=== PATIENT | male | born 1960 | race African-American/Black ===

== ENCOUNTER 2017-01-05 15:41 | Emergency (ER) | payer OTHER ==
[~2017-01-05] VITALS: Ht 185.4 cm; Wt 77.1 kg
[2017-01-05 15:53] VITALS: BP 150/78
--- NOTE | 2017-01-05 16:17 | Emergency Room Report ---
History of Present Illness General Chief Complaint: Pain Source: Patient Present Illness HPI 56 YO Male presents to the ED c/O Left knee pain 10/10 in severity with superficial burning sensation with areas of numbness near to surgical incision sites. pt. s/p knee surgery x 3 months ago after accident. denies increased erythema, fevers, chills, or significant changes in character to his typical symptoms. Patient states that he wears a modified knee immobilizer. Patient states that he takes prescribed pain medications regularly however he is has been out of his prescription. He denies new trauma or fall. Denies numbness tingling or loss of sensation or gross motor movements of the extremities, incontinence of bowel or bladder. Denies CP, Palpitations, LOC, AMS, dizziness, Changes in Vision, or a sudden severe headache. Allergies: Coded Allergies: No Known Allergies (Unverified , 01/05/17) Patient History Past Medical History: see triage record Past Surgical History: none Pertinent Family History: none Immunizations: UTD Reviewed Nursing Documentation: PMH: Agreed, PSxH: Agreed Nursing Documentation-PMH Hx Hypertension: Yes Review of Systems All Other Systems: negative except mentioned in HPI Physical Exam Vital Signs Date Time Temp Pulse Resp B/P Pulse Ox O2 Delivery O2 Flow Rate FiO2 01/05/17 15:53 98.1 99 18 150/78 97 Room Air Sp02 EP Interpretation: reviewed, normal General Appearance: no apparent distress, alert, GCS 15, non-toxic Head: normocephalic, atraumatic Eyes: bilateral eye PERRL, bilateral eye normal inspection ENT: hearing grossly normal, normal pharynx, no angioedema, normal voice Neck: full range of motion, supple/symm/no masses Respiratory: lungs clear, normal breath sounds, speaking full sentences Cardiovascular #1: regular rate, rhythm, no edema Rectal: deferred Musculoskeletal: back normal, gait/station normal, normal range of motion, no calf tenderness, swelling - anterior left knee, , other - two vertical surgical scars noted to the proximal anterior tibia, no appreciable erythema or increased temperature to palpation, pt. has some ROM- limited due to setting on immobilizer. 2+ post. tibialis pulse palpated Neurologic: alert, oriented x3, responsive, motor strength/tone normal, sensory intact, speech normal Psychiatric: judgement/insight normal, memory normal, mood/affect normal Skin: normal color, no rash, warm/dry, well hydrated Medical Decision Making PA Attestation Dr. Salvador is my supervising Physician whom patient management has been discussed with. Diagnostic Impression: Primary Impression: Knee pain, left Qualified Codes: M25.562 - Pain in left knee ER Course 56 YO Male presents to the ED c/O Left knee pain 10/10 in severity with superficial burning sensation with areas of numbness near to surgical incision sites. pt. s/p knee surgery x 3 months ago after accident. denies increased erythema, fevers, chills, or significant changes in character to his typical symptoms. Patient states that he wears a modified knee immobilizer. Patient states that he takes prescribed pain medications regularly however he is has been out of his prescription. He denies new trauma or fall. Denies numbness tingling or loss of sensation or gross motor movements of the extremities, incontinence of bowel or bladder. Denies CP, Palpitations, LOC, AMS, dizziness, Changes in Vision, or a sudden severe headache. Ddx considered but are not limited to Fracture, dislocation, contusion, Sprain/ Strain/Spasm septic joint, osteomyelitis, hardware dislodgement. Vital signs: are WNL, pt. is afebrile H&PE are most consistent with musculoskeletal injury will perform imaging to r/ o fractures/dislocations. no evidence of infection at this time. suspect post surgical paresthesias. ORDERS: - X-ray Left knee 3 views - negative for fx, Dislocation, or significant soft tissue injury, hardware intact- per preliminary read in ED by Dr. Salvador - interpretation is scribed by PA. ED INTERVENTIONS: none required at this time. - d/w pt. that he will be started in gabapentin, taper explained to him. d/w pt. to follow up with pcp, and provided list of free/reduced cost health clinics in the even he does not have pcp here. d/w pt. to return to ED promptly with worsening or new symptoms. DISCHARGE: At this time pt. is stable for d/c to home. Will provide printed patient care instructions, and any necessary prescriptions. Care plan and follow up instructions have been discussed with the patient prior to discharge. Last Vital Signs Date Time Temp Pulse Resp B/P Pulse Ox O2 Delivery O2 Flow Rate FiO2 01/05/17 15:53 98.0 99 18 150/78 97 Room Air Disposition: HOME, SELF-CARE Condition: Stable Scripts Gabapentin* (GABAPENTIN*) 100 Mg Capsule 200 MG ORAL THREE TIMES A DAY, #30 CAP Prov: Janett Prabhakar 01/05/17 Capsaicin (CAPSAICIN) 42.5 Gm Cream..g. 1 GM TP TID, #42.5 GM Prov: Janett Prabhakar 01/05/17 Patient Instructions: Knee Pain Additional Instructions: Take medications as directed. Follow up with a Primary Care Provider in 3-5 days, even if your symptoms have resolved. --Please review list of primary care clinics, if you do not already have a primary care provider Return sooner to ED if new symptoms occur, or current symptoms become worse. Do not drink alcohol, drive, or operate heavy machinery while taking [ ] as this may cause drowsiness. - Please note that this Emergency Department Report was dictated using [employer] customer service specialist technology software, occasionally this can lead to erroneous entry secondary to interpretation by the dictation equipment. Janett Prabhakar Jan 05, 2017 16:17
--- NOTE | 2017-01-05 16:52 | Diagnostic Imaging Report ---
Indications: Left knee pain Technique: 3 views left knee. Findings: Comparison: None Fixation hardware bridges an old healed fracture of the proximal aspect of the tibia. Additional screw tracts are demonstrated in the distal femur, mid tibia. Osseous densities reside at the margins of the knee joint. Prominent arterial mural calcification. No fracture, dislocation, joint space widening or effusion, lytic destruction, periosteal reaction , surrounding soft tissue swelling/foreign body/gas, or other acute changes are identified. IMPRESSION: No evidence of acute abnormality of the left knee Prior ORIF left tibial fracture Periarticular calcific/ossific densities may represent fracture fragments or heterotopic ossification Arteriosclerosis.
[2017-01-05] MEDS ORDERED: GABAPENTIN100 MG ORAL (17:08)
[2017-01-05] MEDS ORDERED: CAPSAICIN42.5 GM TP (17:08)
[2017-01-05 17:25] VITALS: BP 123/79
== END 2017-01-05 17:25 | disposition home or self-care (01) ==
LOC: EMR 16:25
DX: M25.562 Pain in left knee (principal); I10 Essential (primary) hypertension; Z98.890 Other specified postprocedural states; I70.8 Atherosclerosis of other arteries
CPT/HCPCS: 99283

== ENCOUNTER 2017-05-09 16:26 | Emergency (ER) | payer MEDICAID, OTHER ==
[~2017-05-09] VITALS: Ht 185.4 cm; Wt 77.1 kg
[~2017-05-09 16:26] MED LIST: CAPSAICIN42.5 GM TP; GABAPENTIN100 MG ORAL
[2017-05-09 16:55] VITALS: BP 137/83
[2017-05-09] MEDS ORDERED: LISINOPRIL5 MG ORAL (18:16)
[2017-05-09] MEDS ORDERED: NORCO 5-325 TA1 EAC1 ORAL (18:16)
[2017-05-09] MEDS ORDERED: IBUPROFEN600 MG ORAL (18:16)
[2017-05-09 18:27] VITALS: BP 152/90
--- NOTE | 2017-05-09 21:20 | Emergency Room Report ---
History of Present Illness General Chief Complaint: General Complaint Source: Patient Present Illness HPI The patient is a 56-year-old male presenting for left knee pain. He states that he had surgery on the left knee 7 months prior after fracture. He denies any complications. Pain has been gradually increasing over the past few months. He denies any injury to the area. Pain is now 8/10 dull ache and does not radiate. Worse with movement. He denies any other symptoms including N, V , F, chills, rash Allergies: Coded Allergies: No Known Allergies (Unverified , 01/05/17) Patient History Past Medical History: see triage record Past Surgical History: other - L knee 7 months prior Pertinent Family History: none Reviewed Nursing Documentation: PMH: Agreed, PSxH: Agreed Nursing Documentation-PMH Hx Hypertension: Yes Review of Systems All Other Systems: negative except mentioned in HPI Physical Exam Vital Signs Date Time Temp Pulse Resp B/P (MAP) Pulse Ox O2 Delivery O2 Flow Rate FiO2 05/09/17 16:45 98.1 100 16 137/83 98 Room Air Sp02 EP Interpretation: reviewed, normal General Appearance: no apparent distress, alert, GCS 15, non-toxic Head: normocephalic, atraumatic Eyes: bilateral eye normal inspection, bilateral eye PERRL Musculoskeletal: back normal, gait/station normal, normal range of motion, no calf tenderness, swelling - L knee. No fluctuance, tender - TTP over the L anterior knee. Neurologic: alert, oriented x3, responsive, motor strength/tone normal, sensory intact, speech normal Psychiatric: judgement/insight normal, memory normal, mood/affect normal, no suicidal/homicidal ideation Skin: normal color, no rash, warm/dry, well hydrated Medical Decision Making PA Attestation Dr. Ellis is my supervising physician. Patient management was discussed with my supervising physician Diagnostic Impression: Primary Impression: Knee pain, left Qualified Codes: M25.562 - Pain in left knee ER Course The patient is a 56-year-old male presenting for left knee pain. Ddx considered include but not limited to sprain/strain, fracture, contusion, osteomyelitis, gout, hardware failure, among others PE: Afebrile. NAD L knee: TTP over the anterior aspect. FulL AROM intact. No skin changes. Skin is warm and dry. No calf tenderness or edema. L knee xray shows hardware is intact. No acute findings. The patient is discharged home with a prescription for pain medication. he also states she ran out of his lisinopril. He was given a refill and will followup with his primary doctor. ER precautions are given Other X-Ray Diagnostic Results Other X-Ray Diagnostic Results : X-Ray ordered: L knee # of Views/Limited Vs Complete: 3 View Indication: Pain EP Interpretation: Yes PA Xray: Interpretation reviewed, by supervising MD, and agrees with findings. Interpretation: no dislocation, no soft tissue swelling, no fractures Impression: No acute disease Electronically Signed by: Declan Anguiano PA-C Last Vital Signs Date Time Temp Pulse Resp B/P (MAP) Pulse Ox O2 Delivery O2 Flow Rate FiO2 05/09/17 18:27 96 14 152/90 100 Room Air 05/09/17 16:55 98.1 Status: improved Disposition: HOME, SELF-CARE Condition: Improved Scripts Hydrocodone Bit/Acetaminophen 5-325* (NORCO 5-325 TABLET*) 1 Each Tablet 1 TAB ORAL Q6HR Y for For Pain, #10 TAB Prov: DECLAN ANGUIANO P.A. 05/09/17 Ibuprofen* (MOTRIN*) 600 Mg Tablet 600 MG ORAL Q8H Y for For Pain, #30 TAB 0 Refills Prov: DECLAN ANGUIANO P.A. 05/09/17 Lisinopril (LISINOPRIL*) 5 Mg Tablet 5 MG ORAL DAILY, #30 TAB Prov: DECLAN ANGUIANO P.A. 05/09/17 Referrals: NOT CHOSEN [facility]/,REFERRING (PCP) Patient Instructions: Knee Pain Additional Instructions: I discussed my findings with the patient. All questions and concerns have been answered. Treatment and medication compliance have been addressed. Please follow up with the orthopedic surgeon.Return to ED if pain remains or worsens, numbness or tingling occurs, new rash is noticed, fever is noticed, or if needed for any reason. Patient verbalized understanding of discharge instructions. DECLAN ANGUIANO May 09, 2017 21:20
--- NOTE | 2017-05-10 12:07 | Diagnostic Imaging Report ---
Indication: PAIN Technique: 3 views of the left knee Comparison: None Findings:. Extensive surgical hardware seen reducing old healed proximal tibial fracture. Areas of heterotopic ossification are seen lateral, medial, and posterior to the knee joint, presumably related to this. No acute fractures. No dislocations. Old screw tracks are seen in the distal femur and tibia. No suprapatellar effusion. The joint spaces are preserved. No radiopaque foreign body other than the surgical hardware Impression:Posttraumatic and postsurgical changes, as described No acute bony trauma This agrees with the preliminary interpretation provided overnight by Dr. Chan
== END 2017-05-09 18:30 | disposition home or self-care (01) ==
LOC: EMR 17:08
DX: M25.562 Pain in left knee (principal); I10 Essential (primary) hypertension; Z98.890 Other specified postprocedural states
CPT/HCPCS: 99284

== ENCOUNTER 2017-06-17 10:43 | Emergency (ER) | payer MEDICAID ==
[~2017-06-17] VITALS: Ht 185.4 cm; Wt 77.1 kg
[~2017-06-17 10:43] MED LIST changes: +IBUPROFEN600 MG ORAL; +LISINOPRIL5 MG ORAL; +NORCO 5-325 TA1 EAC1 ORAL
[2017-06-17] MEDS ORDERED: ROBAXIN-750750 MG PO (11:43)
[2017-06-17 11:50] VITALS: BP 142/88
--- NOTE | 2017-06-17 13:11 | Emergency Room Report ---
History of Present Illness General Chief Complaint: Pain Source: Patient Present Illness HPI 49-year-old male with left upper back pain Duration 1-2 weeks Worsen morning, patient thinks is because he is "sleeping awkwardly." he also just got of mcc Denies chest pain, shortness of breath, fever or chills Patient taking ibuprofen at home Deniesl lower extremity weakness Denies incontinence denies trauma Allergies: Coded Allergies: No Known Allergies (Unverified , 01/05/17) Patient History Past Medical History: none Past Surgical History: none Pertinent Family History: none Social History: Denies: smoking, alcohol use, drug use Immunizations: UTD Reviewed Nursing Documentation: PMH: Agreed, PSxH: Agreed Nursing Documentation-PMH Hx Hypertension: Yes Review of Systems All Other Systems: negative except mentioned in HPI Physical Exam Vital Signs Date Time Temp Pulse Resp B/P (MAP) Pulse Ox O2 Delivery O2 Flow Rate FiO2 06/17/17 11:01 97.9 98 17 142/83 98 Room Air Sp02 EP Interpretation: reviewed, normal General Appearance: normal inspection, well appearing, no apparent distress, alert, GCS 15, non-toxic Head: normocephalic, atraumatic Eyes: bilateral eye PERRL, bilateral eye EOMI ENT: normal ENT inspection, hearing grossly normal, normal pharynx, no angioedema, normal voice, TMs + canals normal, uvula midline, moist mucus membranes Neck: normal inspection, full range of motion, supple, thyroid normal, no meningismus, no bony tend Respiratory: normal inspection, lungs clear, normal breath sounds, no rhonchi, no respiratory distress, no retraction, no accessory muscle use, no wheezing, speaking full sentences Cardiovascular #1: regular rate, rhythm, no edema, no JVD, normal capillary refill Gastrointestinal: normal inspection, normal bowel sounds, non tender, soft, no mass, no peritonitis, non-distended, no guarding, no hernia, no pulsatile mass Genitourinary: no CVA tenderness Musculoskeletal: normal inspection, back normal, normal range of motion, no calf tenderness, pelvis stable, Mendoza's Sign negative, other - Mild ttp mid/ upper left back, palpable cord/spasm Neurologic: normal inspection, alert, oriented x3, responsive, utilization management um nurse III-XII nml as tested, motor strength/tone normal, cerebellar normal, normal gait, speech normal Psychiatric: normal inspection, judgement/insight normal, mood/affect normal, no suicidal/homicidal ideation, no delusions Skin: normal inspection, normal color, no rash Lymphatic: normal inspection, no adenopathy Medical Decision Making Diagnostic Impression: Primary Impression: Upper back pain on left side ER Course 57YOM with left upper back pain 2 weeks VSS, Afebrile palpable spasm Rx Robaxin to take with motrin Close PMD followup ER course: Patient has remained stable during ED stay. Disposition: Patient is to be discharged to home. Prescriptions given are robaxin Patient is instructed to follow up with their primary care doctor within 5 days. Strict return precautions discussed with patient such as fever, chills, worsening/severe pain, nausea, vomiting, which may indicate severe illness. Patient verbalizes understanding and agrees with plan. Please note that this Emergency Department Report was dictated using [employer] officer technology software, occasionally this can lead to erroneous entry secondary to interpretation by the dictation equipment Last Vital Signs Date Time Temp Pulse Resp B/P (MAP) Pulse Ox O2 Delivery O2 Flow Rate FiO2 06/17/17 11:01 97.9 98 17 142/83 98 Room Air Status: improved Disposition: HOME, SELF-CARE Condition: Improved Scripts Methocarbamol* (ROBAXIN-750*) 750 Mg Tablet 750 MG PO TID for 7 Days, #21 TAB 0 Refills Prov: NANO SANTIZO M.D. 06/17/17 Referrals: NOT CHOSEN [facility]/,REFERRING (PCP) NANO SANTIZO M.D. Jun 17, 2017 13:11
== END 2017-06-17 11:50 | disposition home or self-care (01) ==
LOC: EMR 11:43
DX: M54.9 Dorsalgia, unspecified (principal); I10 Essential (primary) hypertension
CPT/HCPCS: 99283

== ENCOUNTER 2017-07-12 12:11 | Emergency (ER) | payer MEDICAID ==
[~2017-07-12] VITALS: Ht 185.4 cm; Wt 77.1 kg
[~2017-07-12 12:11] MED LIST changes: +ROBAXIN-750750 MG PO
[2017-07-12 12:35] VITALS: BP 155/91
--- NOTE | 2017-07-12 13:27 | Emergency Room Report ---
History of Present Illness General Chief Complaint: General Complaint Source: Patient Present Illness HPI 57-year-old male presents to the emergency department complaining of erythema, increased lacrimation and sticky discharge in the left thigh times one day. Patient reports nonproductive cough with increase in phlegm and nasal congestion x3 days. Patient reports subjective low grade fevers he denies chills. he denies eye pain or pain with movement of the eye or scratching sensation. He does report 10 out of 10 in severity pain throughout his rib cage only when coughing. Denies Loss of vision, Floaters, Flashing lights, Diplopia/blurry vision. Allergies: Coded Allergies: No Known Allergies (Unverified , 01/05/17) Nursing Documentation-PMH Hx Hypertension: Yes Review of Systems All Other Systems: negative except mentioned in HPI Physical Exam Vital Signs Date Time Temp Pulse Resp B/P (MAP) Pulse Ox O2 Delivery O2 Flow Rate FiO2 07/12/17 12:16 98.1 111 20 152/93 95 Room Air Sp02 EP Interpretation: reviewed, normal General Appearance: no apparent distress, alert, GCS 15, non-toxic Head: normocephalic, atraumatic Eyes: left eye other - erythema , yellow d/c and wet appearance to lashes of left eye, no periorbital swelling. , bilateral eye PERRL, bilateral eye EOMI ENT: hearing grossly normal, normal pharynx, normal voice, TMs + canals normal , uvula midline, moist mucus membranes, nasal congestion, pharyngeal erythema Neck: full range of motion Respiratory: chest non-tender, lungs clear, normal breath sounds, speaking full sentences Cardiovascular #1: regular rate, rhythm Genitourinary: normal inspection Musculoskeletal: back normal, gait/station normal, normal range of motion, non- tender Neurologic: alert, oriented x3, responsive, motor strength/tone normal, sensory intact, speech normal, grossly normal Psychiatric: judgement/insight normal Skin: normal color, no rash, warm/dry, well hydrated Lymphatic: no adenopathy Medical Decision Making PA Attestation Dr. Hernandez is my supervising Physician whom patient management has been discussed with. Diagnostic Impression: Primary Impression: Upper respiratory infection Qualified Codes: J06.9 - Acute upper respiratory infection, unspecified Additional Impressions: Bacterial conjunctivitis of left eye Nasal congestion ER Course 57-year-old male presents to the emergency department complaining of erythema, increased lacrimation and sticky discharge in the left thigh times one day. Patient reports nonproductive cough with increase in phlegm and nasal congestion x3 days. Patient reports subjective low grade fevers he denies chills. he denies eye pain or pain with movement of the eye or scratching sensation. He does report 10 out of 10 in severity pain throughout his rib cage only when coughing. Denies Loss of vision, Floaters, Flashing lights, Diplopia/blurry vision. Ddx considered but are not limited to URI, pneumonia, PE, strep pharyngitis, meningitis. Vital signs: Pt. is afebrile, the remaining VS are WNL H&PE are most consistent with Bacterial conjunctivitis and URI ORDERS: none required at this time, the diagnosis is clinical ED INTERVENTIONS: None required at this time. DISCHARGE: At this time pt. is stable for d/c to home. Will provide printed patient care instructions, and any necessary prescriptions. Care plan and follow up instructions have been discussed with the patient prior to discharge. p Last Vital Signs Date Time Temp Pulse Resp B/P (MAP) Pulse Ox O2 Delivery O2 Flow Rate FiO2 07/12/17 12:35 83 20 155/91 97 Room Air 07/12/17 12:16 98.1 Disposition: HOME, SELF-CARE Condition: Stable Scripts Acetaminophen* (TYLENOL EXTRA STRENGTH*) 500 Mg Tablet 500 MG ORAL Q6H Y for Mild Pain/Temp > 100.5, #20 TAB 0 Refills Prov: Janett Prabhakar P.A. 07/12/17 Ofloxacin (OCUFLOX) 5 Ml Drops 2 DROP OP TID, #5 ML Prov: Janett Prabhakar P.A. 07/12/17 Guaifenesin (Guaifenesin) 1,200 Mg Tab.er.12h 1200 MG PO BID, #20 TAB Prov: Janett Prabhakar P.A. 07/12/17 Loratadine/Pseudoephedrine (CLARITIN-D 12 HOUR TABLET) 1 Each Tab.er.12h 1 TAB ORAL EVERY 12 HOURS, #20 TAB Prov: Janett Prabhakar P.A. 07/12/17 Codeine/Promethazine Hcl* (PROMETHAZINE-CODEINE SYRUP*) 118 Ml Syrup 5 ML ORAL Q6H Y for For Cough, #118 ML 0 Refills Prov: Janett Prabhakar 07/12/17 Referrals: NOT CHOSEN [facility]/MD,REFERRING (PCP) Patient Instructions: Upper Respiratory Infection, Adult, [id number] Additional Instructions: Take medications as directed. Follow up with a Primary Care Provider in 3-5 days, even if your symptoms have resolved. --Please review list of primary care clinics, if you do not already have a primary care provider Return sooner to ED if new symptoms occur, or current symptoms become worse. Do not drink alcohol, drive, or operate heavy machinery while taking Cough Syrup as this may cause drowsiness. - Please note that this Emergency Department Report was dictated using [employer] stone installer technology software, occasionally this can lead to erroneous entry secondary to interpretation by the dictation equipment. Janett Prabhakar Jul 12, 2017 13:27
[2017-07-12] MEDS ORDERED: OCUFLOX5 ML OP (13:29)
[2017-07-12] MEDS ORDERED: PROMETHAZINE-C118 M1 ORAL (13:29)
[2017-07-12] MEDS ORDERED: GUAIFENESIN1200 MG PO (13:29)
[2017-07-12] MEDS ORDERED: TYLENOL EXTRA500 MG ORAL (13:29)
[2017-07-12] MEDS ORDERED: CLARITIN-D 121 EAC1 ORAL (13:29)
[2017-07-12 13:40] VITALS: BP 138/87
== END 2017-07-12 13:40 | disposition home or self-care (01) ==
LOC: EMR 13:00
DX: J06.9 Acute upper respiratory infection, unspecified (principal); H10.9 Unspecified conjunctivitis; B96.89 Other specified bacterial agents as the cause of diseases classified elsewhere; R09.81 Nasal congestion; I10 Essential (primary) hypertension
CPT/HCPCS: 99284

== ENCOUNTER 2017-09-25 12:50 | Emergency (ER) | payer MEDICAID ==
[~2017-09-25] VITALS: Ht 185.4 cm; Wt 77.1 kg
[~2017-09-25 12:50] MED LIST changes: +CLARITIN-D 121 EAC1 ORAL; +GUAIFENESIN1200 MG PO; +OCUFLOX5 ML OP; +PROMETHAZINE-C118 M1 ORAL; +TYLENOL EXTRA500 MG ORAL
[2017-09-25 12:58] VITALS: BP 150/79
--- NOTE | 2017-09-25 13:57 | Emergency Room Report ---
History of Present Illness General Chief Complaint: Flu Like Symptoms Source: Patient, Medical Record Present Illness HPI 57-year-old male presents to the emergency department complaining of cough, increased sputum production, nasal congestion, runny nose 5 days. Patient reports some chills denies fevers. Reports 5/10 in severity progressive pressure RAMIREZ and generalized body-aches. Patient also is requesting medication refill for his lisinopril as well as gabapentin. Patient reports that he has been out of his medication for a few days. Denies ear pain, high fevers, lethargy, neck pain/stiffness, irritability, photophobia dehydration, N/V/D. Denies Cp, Palpitations, LOC, AMS, seizures, paresthesias, unilateral weakness or changes in Hearing or vision, no Sudden severe RAMIREZ. Allergies: Coded Allergies: No Known Allergies (Unverified , 01/05/17) Patient History Past Medical History: see triage record, psych hx - PTSD- Social History: Reports: smoking - cigarrettes Reviewed Nursing Documentation: PMH: Agreed; PSxH: Agreed Nursing Documentation-PMH Past Medical History: No History, Except For Hx Hypertension: Yes Review of Systems All Other Systems: negative except mentioned in HPI Physical Exam Vital Signs Date Time Temp Pulse Resp B/P (MAP) Pulse Ox O2 Delivery O2 Flow Rate FiO2 09/25/17 12:58 99 18 Room Air 09/25/17 12:58 98.6 150/79 95 98.6 Sp02 EP Interpretation: reviewed, normal General Appearance: no apparent distress, alert, GCS 15, non-toxic Head: normocephalic, atraumatic Eyes: bilateral eye normal inspection, bilateral eye PERRL ENT: hearing grossly normal, normal voice, TMs + canals normal, uvula midline, moist mucus membranes, nasal congestion, pharyngeal erythema Neck: full range of motion Respiratory: chest non-tender, lungs clear, normal breath sounds, no respiratory distress, no accessory muscle use, speaking full sentences, wheezing - scant wheezing on exhalation Cardiovascular #1: regular rate, rhythm, no edema Musculoskeletal: back normal, gait/station normal, normal range of motion, non- tender Neurologic: alert, oriented x3, responsive, motor strength/tone normal, sensory intact, speech normal, grossly normal Psychiatric: judgement/insight normal Skin: normal color, no rash, warm/dry, well hydrated Lymphatic: no adenopathy Medical Decision Making PA Attestation Dr. Hernandez is my supervising Physician whom patient management has been discussed with. Diagnostic Impression: Primary Impression: Bronchitis ER Course 57-year-old male presents to the emergency department complaining of cough, increased sputum production, nasal congestion, runny nose 5 days. Patient reports some chills denies fevers. Reports 5/10 in severity progressive pressure RAMIREZ and generalized body-aches. Patient also is requesting medication refill for his lisinopril as well as gabapentin. Patient reports that he has been out of his medication for a few days. Denies ear pain, high fevers, lethargy, neck pain/stiffness, irritability, photophobia dehydration, N/V/D. Denies Cp, Palpitations, LOC, AMS, seizures, paresthesias, unilateral weakness or changes in Hearing or vision, no Sudden severe RAMIREZ. Ddx considered but are not limited to URI, pneumonia, PE, strep pharyngitis, meningitis. Vital signs: Pt.is afebrile VS are WNL BP is elevated but not an emergent measurement. H&PE are most consistent with bronchitis, and medication refill request. ORDERS: none required at this time, the diagnosis is clinical ED INTERVENTIONS: None required at this time. DISCHARGE: At this time pt. is stable for d/c to home. Will provide printed patient care instructions, and any necessary prescriptions. Care plan and follow up instructions have been discussed with the patient prior to discharge. Last Vital Signs Date Time Temp Pulse Resp B/P (MAP) Pulse Ox O2 Delivery O2 Flow Rate FiO2 09/25/17 12:58 98.6 99 18 150/79 95 Room Air 98.6 Disposition: HOME, SELF-CARE Condition: Stable Scripts Guaifenesin (Guaifenesin) 1,200 Mg Tab.er.12h 1200 MG PO BID, #20 TAB Prov: Janett Prabhakar P.A. 09/25/17 Lisinopril (LISINOPRIL*) 5 Mg Tablet 5 MG ORAL DAILY, #20 TAB Prov: Janett Prabhakar P.A. 09/25/17 Codeine/Promethazine Hcl* (PROMETHAZINE-CODEINE SYRUP*) 118 Ml Syrup 5 ML ORAL Q6H PRN for For Cough, #120 ML 0 Refills Prov: Janett Prabhakar 09/25/17 Albuterol Sulfate* (ALBUTEROL SULFATE MDI*) 8.5 Gm Hfa.aer.ad 2 PUFF INH Q4H, #1 INH 0 Refills Prov: Janett Prabhakar 09/25/17 Gabapentin* (GABAPENTIN*) 100 Mg Capsule 100 MG ORAL THREE TIMES A DAY, #12 CAP Prov: Janett Prabhakar 09/25/17 Patient Instructions: Acute Bronchitis, [id number] Additional Instructions: Take medications as directed. Follow up with a Primary Care Provider in 3-5 days, even if your symptoms have resolved. --Please review list of primary care clinics, if you do not already have a primary care provider Return sooner to ED if new symptoms occur, or current symptoms become worse. Do not drink alcohol, drive, or operate heavy machinery while taking Cough Syrup as this may cause drowsiness. - Please note that this Emergency Department Report was dictated using [employer] injury adjuster technology software, occasionally this can lead to erroneous entry secondary to interpretation by the dictation equipment. Janett Prabhakar Sep 25, 2017 13:57
[2017-09-25] MEDS ORDERED: PROMETHAZINE-C118 M1 ORAL (14:03)
[2017-09-25] MEDS ORDERED: LISINOPRIL5 MG ORAL (14:03)
[2017-09-25] MEDS ORDERED: GABAPENTIN100 MG ORAL (14:03)
[2017-09-25] MEDS ORDERED: ALBUTEROL SULF8.5 GM INH (14:03)
[2017-09-25] MEDS ORDERED: GUAIFENESIN1200 MG PO (14:03)
[2017-09-25 14:26] VITALS: BP 148/82
== END 2017-09-25 14:36 | disposition home or self-care (01) ==
LOC: EMR 14:20
DX: J20.9 Acute bronchitis, unspecified (principal); F17.210 Nicotine dependence, cigarettes, uncomplicated; I10 Essential (primary) hypertension
CPT/HCPCS: 99284

== ENCOUNTER 2017-10-19 15:50 | Emergency (ER) | payer MEDICAID ==
[~2017-10-19] VITALS: Ht 188 cm; Wt 77.1 kg
[~2017-10-19 15:50] MED LIST changes: +ALBUTEROL SULF8.5 GM INH
[2017-10-19] MEDS ORDERED: Isovue-300 100ml vial INJ PRN (16:15)
[2017-10-19 16:42] LABS: APPEARANCE,URINE CLEAR; BILIRUBIN, URINE NEGATIVE (NEGATIVE); COLOR,URINE PALE YELLOW; GLUCOSE, URINE (UA) NEGATIVE (NEGATIVE); KETONES,URINE NEGATIVE (NEGATIVE); LEUKOCYTE ESTERASE ,URINE NEGATIVE (NEGATIVE); NITRITE,URINE NEGATIVE (NEGATIVE); PH,URINE 6 (4.5-8.0); PROTEIN,URINE NEGATIVE (NEGATIVE); UROBILINOGEN,URINE NORMAL MG/DL (0.0-1.0)
[2017-10-19] MEDS ORDERED: Sodium Chloride 500ML 500 ML IV ONE (16:45)
[2017-10-19 16:46] LABS: BASOPHILS % (AUTO) 1.4 % (0.0-2.0); EOSINOPHILS % (AUTO) 0.2 % (0.0-3.0); HEMATOCRIT 39.4 % (42.0-52.0); HEMOGLOBIN 13.9 G/DL (14.2-18.0); LYMPHOCYTES % (AUTO) 40.1 % (20.0-45.0); MEAN CORPUSCULAR VOLUME 107 FL (80-99); MONOCYTES % (AUTO) 8.3 % (1.0-10.0); NEUTROPHILS % (AUTO) 49.9 % (45.0-75.0); PLATELET COUNT 156 K/UL (150-450); RED BLOOD COUNT 3.69 M/UL (4.70-6.10); RED CELL DISTRIBUTION WIDTH 11.5 % (11.6-14.8); WHITE BLOOD COUNT 3.9 K/UL (4.8-10.8)
[2017-10-19 17:04] LABS: ANION GAP 19 mmol/L (5-15); BLOOD UREA NITROGEN 9 mg/dL (7-18); CALCIUM 9.6 MG/DL (8.5-10.1); CARBON DIOXIDE 21 MMOL/L (21-32); CHLORIDE 101 MMOL/L (98-107); CREATININE 0.9 MG/DL (0.55-1.30); POTASSIUM 3.6 MMOL/L (3.5-5.1); SODIUM 141 MMOL/L (136-145)
[2017-10-19 17:08] LABS: ALANINE AMINOTRANSFERASE 52 U/L (12-78); ALBUMIN 4.2 G/DL (3.4-5.0); ALBUMIN/GLOBULIN RATIO 0.9 (1.0-2.7); ALKALINE PHOSPHATASE 101 U/L (46-116); ASPARTATE AMINO TRANSFERASE 64 U/L (15-37); BILIRUBIN,TOTAL 0.6 MG/DL (0.2-1.0)
[2017-10-19 18:42] VITALS: BP 134/81
[2017-10-19] MEDS ORDERED: LISINOPRIL5 MG ORAL (18:54)
[2017-10-19 19:00] VITALS: BP 121/66
--- NOTE | 2017-10-19 22:14 | Emergency Room Report ---
History of Present Illness General Chief Complaint: Generalized Weakness Present Illness HPI Patient is a 57-year-old male brought in by EMS after increased generalized weakness. Patient reports having increased stools for the past 5 days. He reports having increased generalized weakness. Patient denies any alcohol or NSAID use. He did not have any hematemesis. Allergies: Coded Allergies: No Known Allergies (Unverified , 01/05/17) Patient History Past Medical History: see triage record Reviewed Nursing Documentation: PMH: Agreed; PSxH: Agreed Nursing Documentation-PMH Hx Hypertension: Yes Review of Systems All Other Systems: negative except mentioned in HPI Physical Exam Vital Signs Date Time Temp Pulse Resp B/P (MAP) Pulse Ox O2 Delivery O2 Flow Rate FiO2 10/19/17 15:46 98.5 112 20 148/96 99 Room Air 98.4 Sp02 EP Interpretation: reviewed, normal General Appearance: normal inspection, well appearing, no apparent distress, alert, GCS 15 Head: atraumatic ENT: normal ENT inspection, hearing grossly normal, normal voice Neck: normal inspection, full range of motion, supple, no bony tend Respiratory: normal inspection, lungs clear, normal breath sounds, no respiratory distress, no retraction, no wheezing Cardiovascular #1: regular rate, rhythm, no edema Gastrointestinal: normal inspection, normal bowel sounds, non tender, soft, no guarding, no hernia Genitourinary: no CVA tenderness Musculoskeletal: normal inspection, back normal, normal range of motion Neurologic: normal inspection, alert, oriented x3, responsive, tankage grinder III-XII nml as tested, speech normal Psychiatric: normal inspection, judgement/insight normal, mood/affect normal Skin: normal inspection, normal color, no rash Medical Decision Making Diagnostic Impression: Primary Impression: Generalized weakness ER Course Patient presented for generalized weakness. Differential diagnosis included was not limited to anemia, urinary tract infection, electrolyte abnormality, hypothyroidism, myocardial infarction, myasthenia gravis, dehydration, among others. Because of complexity of patient's case laboratory testing and imaging studies were ordered.Laboratory testing showed adequate hemoglobin with a slightly low white blood count. The patient's rectal exam showed no evidence of blood. Patient was noted to have some chronic weakness. The CT the head read by radiology showed no evidence of acute CVA. A CT the abdomen pelvis read by radiology showed no acute findings.Patient's weakness is likely related to medication overuse. Patient was advised to stop consuming Ativan as well as cough syrup. The patient is advised to follow up with primary care doctor in 1-2 days. Patient is advised to return if any worsening condition or if any changes in status that are concerning. This report is dictated with [employer] mutuel cashier software which may occasionally lead to discrepancies related to use of this software. Last Vital Signs Date Time Temp Pulse Resp B/P (MAP) Pulse Ox O2 Delivery O2 Flow Rate FiO2 10/19/17 19:00 99 18 121/66 100 Room Air 10/19/17 18:42 98.4 98.4 Status: improved Disposition: HOME, SELF-CARE Condition: Stable Scripts Lisinopril (LISINOPRIL*) 5 Mg Tablet 5 MG ORAL DAILY, #30 TAB Prov: Mohit Salvador MD 10/19/17 Patient Instructions: Mohit Ordonez MD October 19, 2017 22:14
--- NOTE | 2017-10-20 09:20 | Diagnostic Imaging Report ---
Indication: Abdominal pain Technique: Continuous helical transaxial imaging of the abdomen and pelvis was obtained from the lung bases to the pubic symphysis during intravenous contrast administration. Coronal 2-D reformats were also obtained. Study obtained in a Siemens sensation [address] Automatic Exposure Control was utilized. Total Dose length Product (DLP): 482.[address] Dose Index Volume (CTDIvol): 9.71 mGy Comparison: None Findings: Lung bases are clear. The liver may be slightly hypodense. The gallbladder is unremarkable. Arterial calcifications are present. There is a small cyst in the left kidney. There is focal fat in the liver near the falciform ligament. The pancreas and adrenal glands are unremarkable. Diverticula noted in the colon. No evidence of diverticulitis. Small diverticulum projecting posteriorly from the urinary bladder noted. No free fluid or free air identified. Normal appendix noted. IMPRESSION: No acute findings. Mild fatty liver. Diverticulosis of the colon. Multiple incidental findings as above. [facility] has communicated the preliminary results to the Emergency Department. Their findings are largely concordant with this report. The CT scanner at [facility] is accredited by the [employer] and the scans are performed using dose optimization techniques as appropriate to a performed exam including Automatic Exposure control.
--- NOTE | 2017-10-20 09:48 | Diagnostic Imaging Report ---
Indication: Headache Technique: Contiguous 5 mm thick transaxial imaging of the head obtained in a Siemens Sensation [address] scanner. Soft tissue and bone windows generated. Automatic Exposure Control was utilized. Total Dose length Product (DLP): [address] Dose Index Volume (CTDIvol): 70.38 mGy Comparison: none Findings: There is mild prominence of the ventricles, basal cisterns, and cerebral sulci consistent with atrophy. Mild, nonspecific, white matter hypoattenuation is noted throughout the brain consistent with chronic small vessel disease. There is no midline shift, edema, acute hemorrhage, mass effect, or abnormal extra-axial fluid collections. Bones and extra osseous soft tissues are unremarkable. Impression: No acute intracranial bleed, mass effect or edema. Mild atrophy of the brain. Nonspecific white matter hypoattenuation probably due to chronic small vessel disease. The CT scanner at [facility] is accredited by the [employer] and the scans are performed using dose optimization techniques as appropriate to a performed exam including Automatic Exposure control.
== END 2017-10-19 19:04 | disposition home or self-care (01) ==
LOC: EDBD 15:50 → EMR 16:13
DX: R53.1 Weakness (principal); I10 Essential (primary) hypertension; R10.9 Unspecified abdominal pain; R51 Headache
CPT/HCPCS: 36415; 70450; 74177; 80053; 81003; 83690; 84484; 85025; 85610; 85730; 86850; 86900; 86901; 93005; 96374; 99284; J7040; Q9967

== ENCOUNTER 2017-12-24 20:17 | Emergency (ER) | payer MEDICAID ==
[~2017-12-24] VITALS: Ht 185.4 cm; Wt 70.8 kg
[2017-12-24 20:47] VITALS: BP 127/72
[2017-12-24] MEDS: Albuterol ud Inhalation HHN SCH ×3 (20:53→21:08)
--- NOTE | 2017-12-24 20:58 | Emergency Room Report ---
History of Present Illness General Chief Complaint: Upper Respiratory Illness Source: Patient Present Illness HPI Patient is a 57-year-old male complaining of shortness of breath for the last several months worse today. Patient states he became short of breath and then he feels he had an anxiety attack. The patient states a history of COPD although never actually diagnosed by a physician. He is a smoker. Allergies: Coded Allergies: No Known Allergies (Unverified , 01/05/17) Patient History Past Medical History: asthma, COPD, psych hx Past Surgical History: none Pertinent Family History: none Social History: Reports: smoking, alcohol use Nursing Documentation-H Hx Hypertension: Yes Hx COPD: Yes Review of Systems Constitutional: Denies: no symptoms, see HPI, chills, sweats, fever, malaise, weakness, other Eye: Denies: no symptoms, see HPI, eye pain, blurred vision, tearing, double vision, nose pain, nose congestion, acuity changes, discharge, other ENT: Denies: no symptoms, see HPI, ear pain, ear discharge, nose pain, nose congestion, throat pain, throat swelling, mouth pain, hearing loss, nasal discharge, other Respiratory: Reports: cough, shortness of breath; Denies: no symptoms, see HPI , orthopnea, stridor, wheezing, ANN, sputum, other Cardiovascular: Denies: no symptoms, see HPI, chest pain, edema, palpitations, syncope, PND, other Gastrointestinal: Denies: no symptoms, see HPI, abdominal pain, constipation, diarrhea, nausea, vomiting, melena, hematemesis, other Musculoskeletal: Denies: no symptoms, see HPI, back pain, gout, joint pain, joint swelling, muscle pain, muscle stiffness, other Skin: Denies: no symptoms, see HPI, rash, change in color, change in hair/nails , dryness, lesions, other Neurological: Denies: no symptoms, see HPI, headache, numbness, paresthesia, seizure, tingling, tremors, focal weakness, syncope, dizziness, other Hematologic/Lymphatic: Denies: no symptoms, see HPI, anemia, blood clots, easy bleeding, easy bruising, swollen glands, diathesis, other Allergic: Denies: no symptoms, see HPI, urticaria, hay fever, other Physical Exam Vital Signs Date Time Temp Pulse Resp B/P (MAP) Pulse Ox O2 Delivery O2 Flow Rate FiO2 7/15/18 20:24 97.3 109 20 127/72 96 Room Air 97.3 12/24/17 20:54 21 Sp02 EP Interpretation: reviewed, normal General Appearance: no apparent distress, alert, GCS 15, non-toxic Head: normocephalic, atraumatic Eyes: bilateral eye normal inspection, bilateral eye PERRL ENT: hearing grossly normal, normal pharynx, no angioedema, normal voice Neck: full range of motion, supple/symm/no masses Respiratory: chest non-tender, lungs clear, normal breath sounds, speaking full sentences Cardiovascular #1: regular rate, rhythm, no edema Cardiovascular #2: 2+ carotid (R), 2+ carotid (L), 2+ radial (R), 2+ radial (L) , 2+ dorsalis pedis (R), 2+ dorsalis pedis (L) Gastrointestinal: normal bowel sounds, non tender, soft, non-distended, no guarding, no rebound Rectal: deferred Genitourinary: normal inspection, no CVA tenderness Musculoskeletal: back normal, gait/station normal, normal range of motion, non- tender, calf tenderness Neurologic: alert, oriented x3, responsive, motor strength/tone normal, sensory intact, speech normal Psychiatric: judgement/insight normal, memory normal, mood/affect normal, no suicidal/homicidal ideation Reflexes: 3+ bicep (R), 3+ bicep (L), 3+ tricep (R), 3+ tricep (L), 3+ knee (R) , 3+ knee (L) Skin: normal color, no rash, warm/dry, well hydrated Lymphatic: no adenopathy Medical Decision Making Diagnostic Impression: Primary Impression: Upper respiratory infection Qualified Codes: J06.9 - Acute upper respiratory infection, unspecified ER Course Patient is a 57-year-old male with history of chronic lung issues who presents with shortness of breath. The patient received prednisone and 3 treatments in the emergency department with improvement in his shortness of breath. Chest x- ray shows no evidence of acute abnormality and no evidence of chronic COPD at least by radiographic studies. I discussed with the patient that he should stop smoking now to prevent long-term changes and he agrees to do so. Patient will follow up with his primary care physician. Chest X-Ray Diagnostic Results Chest X-Ray Diagnostic Results : Chest X-Ray Ordered: Yes # of Views/Limited/Complete: 1 View Indication: Shortness of Breath EP Interpretation: Yes - No acute abnormality, no pneumothorax, no consolidation, no pneumonia. No evidence of COPD Last Vital Signs Date Time Temp Pulse Resp B/P (MAP) Pulse Ox O2 Delivery O2 Flow Rate FiO2 12/24/17 20:54 94 18 98 Room Air 21 12/24/17 20:47 97.3 127/72 97.3 Disposition: HOME, SELF-CARE Condition: Stable Scripts Prednisone* (PREDNISONE*) 20 Mg Tablet 60 MG ORAL DAILY for 4 Days, #12 TAB Prov: Musa Crawford MD 12/24/17 Referrals: [facility],REFERRING (PCP) Patient Instructions: Upper Respiratory Infection, Adult Musa Crawford MD Dec 24, 2017 20:58
[2017-12-24] MEDS ORDERED: PREDNISONE20 MG ORAL (21:25)
[2017-12-24 21:56] VITALS: BP 128/74
--- NOTE | 2017-12-25 11:51 | Diagnostic Imaging Report ---
Indication: Shortness of breath Technique: One view of the chest Comparison: 05/15/2010 Findings: Lungs and pleural spaces are clear. Heart size is normal no significant change Impression: No acute process This agrees with the preliminary interpretation provided by the emergency room physician
== END 2017-12-24 22:00 | disposition home or self-care (01) ==
LOC: EMR 20:50
DX: J06.9 Acute upper respiratory infection, unspecified (principal); F17.200 Nicotine dependence, unspecified, uncomplicated; I10 Essential (primary) hypertension
CPT/HCPCS: 71045; 94640; 99283; J7512

== ENCOUNTER 2017-12-29 13:26 | Emergency (ER) | payer MEDICAID ==
[~2017-12-29] VITALS: Ht 185.4 cm; Wt 72.6 kg
[~2017-12-29 13:26] MED LIST changes: +PREDNISONE20 MG ORAL
[2017-12-29 14:07] VITALS: BP 132/82
[2017-12-29] MEDS ORDERED: PROMETHAZI6.25 MG/1 ORAL (14:08)
[2017-12-29] MEDS ORDERED: TYLENOL EXTRA500 MG ORAL (14:08)
[2017-12-29] MEDS ORDERED: LORATADINE10 M2 PO (14:08)
[2017-12-29] MEDS ORDERED: FLUTICASONE PRO16 G1 NASAL (14:08)
--- NOTE | 2017-12-29 14:08 | Emergency Room Report ---
History of Present Illness General Chief Complaint: Upper Respiratory Illness Present Illness HPI 57-year-old female patient presents ER complaining of cough and congestion for the past week. Patient presented to ER with her significant other with similar symptoms, reports he had symptoms first. Denies fever, chest pain, shortness of breath, abdominal pain. Denies vomiting or diarrhea. Reports congestion and allergy symptoms,denies vision changes or photophobia. Denies history of cardiovascular disease. Denies other acute symptoms. Allergies: Coded Allergies: No Known Allergies (Unverified , 01/05/17) Patient History Past Medical History: see triage record Reviewed Nursing Documentation: PMH: Agreed; PSxH: Agreed Nursing Documentation-PMH Hx Cardiac Problems: No - degenerative spine disease Hx Hypertension: Yes Hx COPD: Yes Review of Systems All Other Systems: negative except mentioned in HPI Physical Exam Vital Signs Date Time Temp Pulse Resp B/P (MAP) Pulse Ox O2 Delivery O2 Flow Rate FiO2 12/29/17 13:38 97.9 114 16 130/79 97 Room Air 97.9 Sp02 EP Interpretation: reviewed, normal General Appearance: well appearing, no apparent distress, alert, GCS 15, non- toxic Head: normocephalic, atraumatic, other - right frontal sinus TTP Eyes: bilateral eye normal inspection, bilateral eye PERRL ENT: hearing grossly normal, normal pharynx, no angioedema, normal voice, TMs + canals normal, uvula midline, moist mucus membranes, nasal congestion Neck: full range of motion Respiratory: lungs clear, normal breath sounds, no rhonchi, no respiratory distress, no accessory muscle use, no wheezing, speaking full sentences Cardiovascular #1: regular rate, rhythm, no edema Musculoskeletal: back normal, digits/nails normal, gait/station normal, normal range of motion, non-tender Psychiatric: mood/affect normal Skin: no rash Lymphatic: no adenopathy Medical Decision Making PA Attestation Dr. Salvador is my supervising Physician whom patient management has been discussed with. Diagnostic Impression: Primary Impression: Allergic sinusitis ER Course Pt presents to ED c/o sinus congestion and cough. DDX considered but are not limited to s influenza, viral URI, pneumonia, strep throat, rhinitis, sinusitis, otitis media. VITAL SIGNS are WNL, patient is afebrile. ORDERS: None required at this time, diagnosis is clinical. ER COURSE: Physical exam shows lungs clear to auscultation, no wheezes, rhonchi, or rales. Does not require CXR at this time, low suspicion for pneumonia. No pharyngeal erythema or tonsillar exudates, no uvular deviation. Tenderness to palpation of right frontal sinus and nasal congestions noted, likely sinus congestion possibly secondary to allergies causing symptoms. Explained the patient how symptoms of congestion may be leading to cough symptoms. Does not require labs or imaging at this time. Likely viral etiology of symptoms. presents to ER with contact with similar symptoms. At this time pt is stable for d/c to home. Patient reports being in no acute distress currently. Patient will be treated for probable sinus congestion and patient agrees with treatment plan. Patient asking for food and drink while in the ER. Don't smoke. Denies chest pain, SOB, low suspicion for underlying cardiac pathology at this time, does not require labs or imaging at this time. DISCHARGE: -Rx given for Tylenol for fever/pain. -Rx given for Claritin for sinus congestion. -Rx given for promethazine for cough Rx provided for fluticasone patient okay for discharge home, nontoxic appearing, no acute distress, talking and speaking without difficulty, smiling. Patient to take medications as instructed Will provide with patient care instructions and any necessary prescriptions. Care plan and follow-up instructions provided. Patient instructed to follow-up with primary care provider in 3 - 5 days and discuss follow-up with dentist for any tooth pain. Patient questions asked and answered. ER precautions given. Patient instructed to return to ER immediately for any new or worsening of symptoms including but not limited to fever, facial weakness , difficulty speaking, difficulty breathing, difficulty swallowing. - Please note that this Emergency Department Report was dictated using [employer] burner technology software, occasionally this can lead to erroneous entry secondary to interpretation by the dictation equipment. Last Vital Signs Date Time Temp Pulse Resp B/P (MAP) Pulse Ox O2 Delivery O2 Flow Rate FiO2 12/29/17 13:38 97.9 114 16 130/79 97 Room Air 97.9 Disposition: HOME, SELF-CARE Condition: Stable Scripts Fluticasone Propionate* (FLUTICASONE PROPIONATE*) 16 Gm [place].susp 1 SPRAY NASAL TWICE A DAY, #16 GM Prov: Elieser Kwan P.A. 12/29/17 Loratadine (LORATADINE) 10 Mg Tablet 10 MG PO DAILY, #30 TAB Prov: Elieser Kwan 12/29/17 Promethazine Hcl (PROMETHAZINE HCL*) 6.25 Mg/5 Ml Syrup 5 ML ORAL Q8H, #120 ML 0 Refills Prov: Elieser Kwan 12/29/17 Acetaminophen* (TYLENOL EXTRA STRENGTH*) 500 Mg Tablet 500 MG ORAL Q8H PRN for Prn Headache/Temp > 101, #30 TAB 0 Refills Prov: Elieser Kwan 12/29/17 Patient Instructions: Sinusitis, Adult, Ltbr-ht-Dver Additional Instructions: Followup with primary care provider in 3 -5 days. Take medications as directed. Patient questions asked and answered. ER precautions given, patient instructed to return to ER immediately for any new or worsening of symptoms. Elieser Kwan Dec 29, 2017 14:08
[2017-12-29 14:22] VITALS: BP 132/82
== END 2017-12-29 14:22 | disposition home or self-care (01) ==
LOC: EMR 14:05
DX: J30.9 Allergic rhinitis, unspecified (principal); I10 Essential (primary) hypertension; J44.9 Chronic obstructive pulmonary disease, unspecified
CPT/HCPCS: 99284

== ENCOUNTER 2018-10-02 23:49 | Inpatient (IN) | payer MEDICAID ==
[~2018-10-02] VITALS: Ht 185.4 cm; Wt 78.9 kg
[~2018-10-02 23:49] MED LIST changes: +FLUTICASONE PRO16 G1 NASAL; +LORATADINE10 M2 PO; +PROMETHAZI6.25 MG/1 ORAL
[2018-10-02] MEDS ORDERED: UNOBMED (23:53)
--- NOTE | 2018-10-02 23:55 | NUR ---
ED Nurse Note: Pt was BIBA from home, c/o left knee pain 8 after fell at home. Pt is A/O X 4. Pt usually walk with cane. Vital signs stable at this time, waiting for orders.
--- NOTE | 2018-10-03 00:11 | NUR ---
ED Nurse Note: His /Elsie .
--- NOTE | 2018-10-03 00:11 | Emergency Room Report ---
History of Present Illness General Chief Complaint: Lower Extremity Injury Source: Patient Present Illness HPI This is a 30-ifqs-il[age]-year-old male with previous left knee surgery. He presents with chief point of left knee pain. He said he tripped and fell and landed on his knee. Now is swollen and he can't move it. Pain is 8 out of 10. Worse with movement. Better with rest. No other injury. No other trauma. Allergies: Coded Allergies: No Known Allergies (Unverified , 01/05/17) Patient History Past Medical History: see triage record, old chart reviewed Past Surgical History: other Pertinent Family History: none Social History: Reports: alcohol use; Denies: smoking Immunizations: other Reviewed Nursing Documentation: PMH: Agreed; PSxH: Agreed Nursing Documentation-PMH Past Medical History: No History, Except For Hx Cardiac Problems: No - degenerative spine disease Hx Hypertension: Yes Hx COPD: Yes Review of Systems Eye: Denies: eye pain, blurred vision ENT: Denies: ear pain, nose congestion, throat swelling Respiratory: Denies: cough, shortness of breath Cardiovascular: Denies: chest pain, palpitations Gastrointestinal: Denies: abdominal pain, diarrhea, nausea, vomiting Musculoskeletal: Reports: joint pain, joint swelling; Denies: back pain Skin: Denies: rash Neurological: Denies: headache, numbness Endocrine: Denies: increased thirst, increased urine Hematologic/Lymphatic: Denies: easy bruising All Other Systems: negative except mentioned in HPI Physical Exam Vital Signs Date Time Temp Pulse Resp B/P (MAP) Pulse Ox O2 Delivery O2 Flow Rate FiO2 10/02/18 23:50 98.4 106 16 120/70 98 Room Air vitals normal Sp02 EP Interpretation: reviewed, normal General Appearance: well appearing, no apparent distress, alert Head: normocephalic, atraumatic Eyes: bilateral eye PERRL, bilateral eye EOMI ENT: hearing grossly normal, normal pharynx Neck: full range of motion, supple, no meningismus Respiratory: chest non-tender, lungs clear, normal breath sounds Cardiovascular #1: regular rate, rhythm, no murmur Gastrointestinal: normal bowel sounds, non tender, no mass, no organomegaly, no bruit, non-distended Musculoskeletal: back normal, other - Left knee: Diffuse effusion. Diffuse tenderness. No warmth or redness. Psychiatric: mood/affect normal Skin: warm/dry Procedures Splinting Splinting : Consent: Verbal Location: left knee Pre-Made Type: knee immobilizer Pre-Proc Neuro Vasc Exam: normal Post-Proc Neuro Vasc Exam: normal Patient Tolerated: Well Complications: None Medical Decision Making Diagnostic Impression: Primary Impression: Femur fracture, left Qualified Codes: S72.92XA - Unspecified fracture of left femur, initial encounter for closed fracture Additional Impression: Alcohol intoxication Qualified Codes: F10.920 - Alcohol use, unspecified with intoxication, uncomplicated ER Course Patient presents with a fall probably due to alcohol intoxication and sustaining a distal femur fracture at the knee. Patient splinted. We'll admit for orthopedic evaluation. I contacted Dr. Salazar for admission and Dr. Valentin for ortho consult. Lab Results Impression labs unremarkable Other X-Ray Diagnostic Results Other X-Ray Diagnostic Results #1: X-Ray ordered: left knee x-rays # of Views/Limited Vs Complete: 4 View Indication: Pain EP Interpretation: Yes Interpretation: no dislocation, no soft tissue swelling, other - distal femur frx at knee Impression: Other - femur frx. Electronically Signed by: Micah Farmer MD Other X-Ray Diagnostic Results #2: X-Ray ordered: left femur x-rays # of Views/Limited Vs Complete: 4 View Indication: Pain EP Interpretation: Yes Interpretation: no dislocation, no soft tissue swelling, other - distal femur fracture Impression: Other - distal femur fracture Electronically Signed by: Micah Farmer MD Last Vital Signs Date Time Temp Pulse Resp B/P (MAP) Pulse Ox O2 Delivery O2 Flow Rate FiO2 10/02/18 23:50 98.4 106 16 120/70 98 Room Air Status: improved Disposition: ADMITTED INPATIENT Condition: Serious Micah Farmer MD Oct 03, 2018 00:11
[2018-10-03] MEDS ORDERED: HYDROcodone/Acetamin 5/325 tab ORAL ONE (00:15)
[2018-10-03 01:22] LABS: BASOPHILS % (AUTO) 0.8 % (0.0-2.0); EOSINOPHILS % (AUTO) 0.2 % (0.0-3.0); HEMATOCRIT 41.3 % (42.0-52.0); HEMOGLOBIN 14.2 G/DL (14.2-18.0); LYMPHOCYTES % (AUTO) 15.3 % (20.0-45.0); MEAN CORPUSCULAR VOLUME 102 FL (80-99); MONOCYTES % (AUTO) 5.5 % (1.0-10.0); NEUTROPHILS % (AUTO) 78.2 % (45.0-75.0); PLATELET COUNT 194 K/UL (150-450); RED BLOOD COUNT 4.04 M/UL (4.70-6.10); RED CELL DISTRIBUTION WIDTH 13.3 % (11.6-14.8); WHITE BLOOD COUNT 8.8 K/UL (4.8-10.8)
--- NOTE | 2018-10-03 01:25 | NUR ---
ED Nurse Note: Blood sample collected and sent to Lab.
[2018-10-03 01:31] LABS: ANION GAP 13 mmol/L (5-15); BLOOD UREA NITROGEN 10 mg/dL (7-18); CALCIUM 9.8 MG/DL (8.5-10.1); CARBON DIOXIDE 27 MMOL/L (21-32); CHLORIDE 98 MMOL/L (98-107); CREATININE 1.2 MG/DL (0.55-1.30); POTASSIUM 3.6 MMOL/L (3.5-5.1); SODIUM 138 MMOL/L (136-145)
[2018-10-03 01:46] LABS: APPEARANCE,URINE CLEAR; BILIRUBIN, URINE NEGATIVE (NEGATIVE); COLOR,URINE PALE YELLOW; GLUCOSE, URINE (UA) NEGATIVE (NEGATIVE); KETONES,URINE NEGATIVE (NEGATIVE); LEUKOCYTE ESTERASE ,URINE 1+ (NEGATIVE); NITRITE,URINE NEGATIVE (NEGATIVE); PH,URINE 6 (4.5-8.0); PROTEIN,URINE 2+ (NEGATIVE); UROBILINOGEN,URINE NORMAL MG/DL (0.0-1.0)
[2018-10-03] MEDS ORDERED: Morphine Sulfate 4mg/ml Inj (IV USE ONLY) IVP PRN (02:30)
--- NOTE | 2018-10-03 02:40 | NUR ---
TRANSFER TO FLOOR: Patient transferred to [facility]/ [place] as ordered. Report given to Aleisha/RN . Belongings sent with Pt and rechecked with RN.
--- NOTE | 2018-10-03 02:40 | NUR ---
NURSE NOTES: Received report over the phone from October, ED RN.
--- NOTE | 2018-10-03 02:45 | NUR ---
NURSE NOTES: Patient admitted from ER. Reviewed belongings list with patient and charge nurse. Skin intact except for large bruise on left knee and dryness and peeling bilat feet. IV intact and patent. side rails up x2, call light within reach, given po fluids, oriented to room and call light. Will continue to monitor.
--- NOTE | 2018-10-03 03:00 | NUR ---
NURSE NOTES: Reviewed home meds with patient again, patient is not sure about all meds and/or schedule. States his fiance takes care of giving him medications. Plan to call her and request a list of present meds.
--- NOTE | 2018-10-03 05:10 | NUR ---
NURSE NOTES: Left message for Dr Salazar for admission orders.
[2018-10-03] MEDS ORDERED: Acetaminophen 500mg (ES) tab ORAL PRN (07:00)
--- NOTE | 2018-10-03 07:15 | NUR ---
NURSE NOTES: patient states slept well, denies pain at this moment
--- NOTE | 2018-10-03 07:30 | NUR ---
HAND-OFF: Report given to BUNNY Rodriguez.
[2018-10-03 08:00] VITALS: BP 109/74
--- NOTE | 2018-10-03 08:00 | NUR ---
NURSE NOTES: Received report from Aleisha HOLLIS, pt a/a/o x4 laying in bed with no signs of distress or other issues at this time. IV on the right AC gauge #20 heplock. pt is NPO except ice chips and meds. call light within reach. bed in lowest position. side rales up x2. Per Dr. Salazar request RN called Dr. Valentin to request orders for DVT prophylaxis, RN will carry on orders, Dr. Valentin also stated that pt might need to transfer to a higher level of care for further treatment. I will f/u as needed.
[2018-10-03] MEDS ORDERED: Folic Acid 1 MG, Magnesium Sulfate 2,000 MG, Multivitamin - 12 Injection 10 ML in Sodiu... IV ONE (09:00)
[2018-10-03] MEDS ORDERED: Thiamine 100mg in D5W 55ml IVPB SCH (09:00)
--- NOTE | 2018-10-03 09:09 | Consultation ---
Consult Note Consult Note 58 yo male with recent fall and severely comminuted supracondylar fracture has hx of tibial plateau fx as well left knee 2+ effusion, in knee immobilizer, +tenderness xray show prior hardware from tibial fracture with question/concern for broken screws and badly comminuted v-shaped supracondylar facture with intraarticular involvement and displacement. this requires higher level of care at a trauma center with a ortho-trauma specialist to address this. d/w pt and nsg re transfer. Elza Berrios Oct 03, 2018 09:09
--- NOTE | 2018-10-03 09:09 | NUR ---
CASE MANAGEMENT:REVIEW 58 YR OLD MALE BIBA FROM HOME CC; LEFT KNEE PAIN AND SWELLING S/P FALL AT HOME. ALSO ORAL TRAUMA NOTED SI: LEFT FEMUR FRACTURE ALCOHOL INTOXICATION 98.4 106 16 120/70 98% ON RA SERUM ALCOHOL(+) 230 IS: NORCO PO X1 IV MORPHINE XRAY LT FEMUR AND KNEE : TO MED/SURG 3 EAST IS: IV BANANA BAG 75/HR IV THIAMINE X1 IVF@75/HR HEPARIN SQ Q12 NEEDS TO TRANSFER TO HIGHER LEVEL OF CARE TO A TRAUMA FACILITY GIVEN SIGNIFICANT LEFT KNEE SUPRACONDYLAR FRACTURE
--- NOTE | 2018-10-03 09:29 | NUR ---
TRANSFER UPDATE COMMUNICATION ELECTRONIC TECHNICIAN NOTED ORDER TO TRANSFER TO HIGHER LEVEL OF CARE GIVEN LT KNEE SUPRACONDYLAR FRACTURE CONTACTED ADMITTING DEPARTMENT AND REQUESTED THEY PROVIDE INSURANCE CONTACT INFORMATION SHAINA. THEY SAID THEY WOULD CALL THIS COMMUNICATION ELECTRONIC TECHNICIAN BACK Addendum: 10/03/18 at 1108 by GAURANG MALIK LVN LVN FACE SHEET FAXED TO [facility] T: [phone] F: [phone] Addendum: 10/03/18 at 1114 by GAURANG MALIK LVN LVN PER PATIENT'S REQUEST CLINICALS FAXED TO [facility] T: [phone] F: [phone] Addendum: 10/03/18 at 1119 by GAURANG MALIK LVN LVN CORRECTED [facility] FA[facility] NUMBER F: [phone] Addendum: 10/03/18 at 1124 by GAURANG MALIK LVN LVN FAXED CLINICALS AND TRANSFER REQUEST TO PATIENT'S HMO AWAITING RESPONSE
[2018-10-03] MEDS: Heparin 5000 units/ml inj SUBQ SCH ×2 (10:05→21:05)
[2018-10-03 12:00] VITALS: BP 119/78
--- NOTE | 2018-10-03 14:00 | NUR ---
*-* INSURANCE *-* CLINICALS AND REVIEWS HAVE BEEN FAXED TO: SIL[employer]IA CARRION:JUAN PABLO TURNER# [phone] FAX CLINICALS TO [phone]
--- NOTE | 2018-10-03 15:53 | NUR ---
TRANSFER UPDATE PATIENT WAS REFERRED TO 1) [facility] ~ THEY ARE INTERESTED IN ACCEPTING THIS PATIENT UNDER DR JUNG CHARLTON BUT THEY REQUESTING A LETTER OF AGREEMENT FROM SILVIA CASTILLO [facility]) [facility] FAXED CLINICALS AND LEFT 2 MESSAGES REQUESTING TRANSFER...NO RESPONSE 3) SILVIA CASTILLO [facility] ~ SPOKE WITH ELASTIC ATTACHER OVERLOCK JUAN PABLO. TO CONVERSATION NEEDS TO TAKE PLACE AND THEN SHE WILL SECURE A BED AT A HIGHER LEVEL OF CARE
--- NOTE | 2018-10-03 15:56 | Diagnostic Imaging Report ---
Indication: Trauma, pain in left leg after slip and fall Technique: 4 views of the left knee Comparison: None Findings: There is a comminuted impacted fracture of the distal femur, with involvement of the articular surface. The lateral condylar fragment is somewhat displaced posteriorly and laterally. The medial condylar fragment is nondisplaced. There is surgical hardware seen reducing old healed proximal tibial fracture, with extensive chronic appearing fracture deformity and evidence of new bone formation. Appearance of the tibia is similar to prior study of 05/01/2017, although there is slightly more new bone. Impression: Positive for acute comminuted distal femoral fracture as described Chronic posttraumatic and postsurgical changes of the tibia This agrees with the preliminary interpretation reported by the emergency room physician in the electronic medical record
[2018-10-03 16:00] VITALS: BP 140/80
--- NOTE | 2018-10-03 16:04 | Diagnostic Imaging Report ---
Indications: Pain in left leg after slip and fall Technique: Two views of the left femur Comparison: None Findings: There is a fracture of the distal femur, better visualized on concomitant knee radiograph. No proximal shaft fracture. Old screw holes are seen within the femoral diaphysis. The hip joint space is preserved. Impression: Positive for distal femur fracture
[2018-10-03] MEDS: Morphine Sulfate 2mg/ml Inj(IV/IM USE ONLY) IVP PRN (17:46)
--- NOTE | 2018-10-03 19:15 | NUR ---
NURSE NOTES: Received a report from BUNNY Rodriguez. Pt is in stable condition. AAOX4. Able to make needs known. No c/o pain/discomfort. IV site is patent and intact. Knee immobilizer on the L knee. Bed in lowest position. Bed alarm is on. Call light within reach. Will continue to monitor.
--- NOTE | 2018-10-03 19:39 | NUR ---
HAND-OFF: Report given to BUNNY Wright, pt in stable condition.
[2018-10-03 20:00] VITALS: BP 125/79
[2018-10-03 21:09] VITALS: BP 125/79
--- NOTE | 2018-10-03 22:59 | Consultation ---
History of Present Illness General Chief Complaint: Lower Extremity Injury Present Illness Allergies: Coded Allergies: No Known Allergies (Unverified , 01/05/17) Medication History Discontinued Medications Acetaminophen* (Tylenol Extra Strength*), 500 MG ORAL Q6H PRN for Mild Pain/ Temp > 100.5 Discontinued Reason: Therapy completed Acetaminophen* (Tylenol Extra Strength*), 500 MG ORAL Q8H PRN for Prn Headache/ Temp > 101 Discontinued Reason: Therapy completed Albuterol Sulfate* (Albuterol Sulfate Mdi*), 2 PUFF INH Q4H Discontinued Reason: Therapy completed Capsaicin (Capsaicin), 1 GM TP TID Discontinued Reason: Therapy completed Codeine/Promethazine Hcl* (Promethazine-Codeine Syrup*), 5 ML ORAL Q6H PRN for For Cough Discontinued Reason: Therapy completed Codeine/Promethazine Hcl* (Promethazine-Codeine Syrup*), 5 ML ORAL Q6H PRN for For Cough Discontinued Reason: Therapy completed Fluticasone Propionate* (Fluticasone Propionate*), 1 SPRAY NASAL TWICE A DAY Discontinued Reason: Therapy completed Gabapentin* (Gabapentin*), 200 MG ORAL THREE TIMES A DAY Discontinued Reason: Therapy completed Gabapentin* (Gabapentin*), 100 MG ORAL THREE TIMES A DAY Discontinued Reason: Therapy completed Guaifenesin (Guaifenesin), 1,200 MG PO BID Discontinued Reason: Therapy completed Guaifenesin (Guaifenesin), 1,200 MG PO BID Discontinued Reason: Therapy completed Hydrocodone Bit/Acetaminophen 5-325* (Omar 5-325 Tablet*), 1 TAB ORAL Q6HR PRN for For Pain Discontinued Reason: Therapy completed Ibuprofen* (Motrin*), 600 MG ORAL Q8H PRN for For Pain Discontinued Reason: Therapy completed Lisinopril (Lisinopril*), 5 MG ORAL DAILY Discontinued Reason: Therapy completed Lisinopril (Lisinopril*), 5 MG ORAL DAILY Discontinued Reason: Therapy completed Loratadine (Loratadine), 10 MG PO DAILY Discontinued Reason: Therapy completed Loratadine/Pseudoephedrine (Claritin-D 12 Hour Tablet), 1 TAB ORAL EVERY 12 HOURS Discontinued Reason: Therapy completed Methocarbamol* (Robaxin-750*), 750 MG PO TID Discontinued Reason: Therapy completed Ofloxacin (Ocuflox), 2 DROP OP TID Discontinued Reason: Therapy completed Prednisone* (Prednisone*), 60 MG ORAL DAILY Discontinued Reason: Therapy completed Promethazine Hcl (Promethazine Hcl*), 5 ML ORAL Q8H Discontinued Reason: Therapy completed Unable to Obtain Medications (Unable To Obtain Meds), (Reported) Discontinued Reason: Therapy completed Patient History Healthcare decision maker Resuscitation status Full Code Advanced Directive on File Review of Systems Musculoskeletal: Reports: back pain, joint pain, joint swelling Physical Exam Last 24 Hour Vital Signs Date Time Temp Pulse Resp B/P (MAP) Pulse Ox O2 Delivery O2 Flow Rate FiO2 10/03/18 21:00 Room Air 10/03/18 20:00 99.5 115 18 125/79 (94) 96 10/03/18 18:16 99.0 10/03/18 16:00 99.0 108 19 140/80 (100) 98 10/03/18 12:00 99.5 112 18 119/78 (92) 97 10/03/18 09:00 Room Air 10/03/18 08:00 98.7 114 20 109/74 (86) 97 10/03/18 03:00 Room Air 10/03/18 02:40 98.2 76 16 124/73 98 Room Air 10/02/18 23:50 98.4 106 16 120/70 98 Room Air Intake and Output 10/02/18 10/03/18 19:00 07:00 Intake Total 0 ml Balance 0 ml Intake Oral 0 ml Laboratory Tests Test 10/03/18 00:55 10/03/18 01:23 10/03/18 01:35 White Blood Count 8.8 K/UL (4.8-10.8) Red Blood Count 4.04 M/UL (4.70-6.10) L Hemoglobin 14.2 G/DL (14.2-18.0) Hematocrit 41.3 % (42.0-52.0) L Mean Corpuscular Volume 102 FL (80-99) H Mean Corpuscular Hemoglobin 35.1 PG (27.0-31.0) H Mean Corpuscular Hemoglobin Concent 34.3 G/DL (32.0-36.0) Red Cell Distribution Width 13.3 % (11.6-14.8) Platelet Count 194 K/UL (150-450) Mean Platelet Volume 8.0 FL (6.5-10.1) Neutrophils (%) (Auto) 78.2 % (45.0-75.0) H Lymphocytes (%) (Auto) 15.3 % (20.0-45.0) L Monocytes (%) (Auto) 5.5 % (1.0-10.0) Eosinophils (%) (Auto) 0.2 % (0.0-3.0) Basophils (%) (Auto) 0.8 % (0.0-2.0) Sodium Level 138 MMOL/L (136-145) Potassium Level 3.6 MMOL/L (3.5-5.1) Chloride Level 98 MMOL/L (98-107) Carbon Dioxide Level 27 MMOL/L (21-32) Anion Gap 13 mmol/L (5-15) Blood Urea Nitrogen 10 mg/dL (7-18) Creatinine 1.2 MG/DL (0.55-1.30) Estimat Glomerular Filtration Rate > 60 mL/min (>60) Glucose Level 130 MG/DL (74-106) H Calcium Level 9.8 MG/DL (8.5-10.1) Serum Alcohol 230 mg/dL Prothrombin Time 10.4 SEC (9.30-11.50) Prothromb Time International Ratio 1.0 (0.9-1.1) Activated Partial Thromboplast Time 23 SEC (23-33) Urine Color Pale yellow Urine Appearance Clear Urine pH 6 (4.5-8.0) Urine Specific [place] 1.005 (1.005-1.035) Urine Protein 2+ (NEGATIVE) H Urine Glucose (UA) Negative (NEGATIVE) Urine Ketones Negative (NEGATIVE) Urine Blood Negative (NEGATIVE) Urine Nitrite Negative (NEGATIVE) Urine Bilirubin Negative (NEGATIVE) Urine Urobilinogen Normal MG/DL (0.0-1.0) Urine Leukocyte Esterase 1+ (NEGATIVE) H Urine RBC 0-2 /HPF (0 - 0) H Urine WBC 0-2 /HPF (0 - 0) Urine Squamous Epithelial Cells None /LPF (NONE/OCC) Urine Bacteria None /HPF (NONE) Urine Opiates Screen Negative (NEGATIVE) Urine Barbiturates Screen Negative (NEGATIVE) Phencyclidine (PCP) Screen Negative (NEGATIVE) Urine Amphetamines Screen Negative (NEGATIVE) Urine Benzodiazepines Screen Negative (NEGATIVE) Urine Cocaine Screen Negative (NEGATIVE) Urine Marijuana (THC) Screen Negative (NEGATIVE) Height (Feet): 6 Height (Inches): 1.00 Weight (Pounds): 173 Medications Current Medications Medications (Trade) Dose Ordered Sig/Héctor Route PRN Reason Start Time Stop Time Status Last Admin Dose Admin Acetaminophen (Tylenol) 500 mg Q4H PRN ORAL Mild Pain (Pain Scale 1-3) 10/03/18 07:00 11/02/18 06:59 Heparin Sodium (Porcine) (Heparin 5000 units/ml) 5,000 units EVERY 12 HOURS SUBQ 10/03/18 09:00 11/02/18 08:59 10/03/18 21:05 Morphine Sulfate (Morphine Sulfate) 2 mg Q4H PRN IVP Severe Pain (Pain Scale 7-10) 10/03/18 07:00 10/10/18 06:59 10/03/18 17:46 Sodium Chloride 1,000 ml @ 75 mls/hr [id number] IV 10/03/18 21:00 11/02/18 20:59 Assessment/Plan Problem List: (1) Alcohol intoxication Assessment & Plan: Consider CIWA protocol with Banana Bag and W/D scale use +/ - ATIVAN for symptoms. Psych consultation IF W/D symptoms Q4 Hour Neuro Obs Hydration/ IVH Maintain normoglycemia HgBA1c check ICD Codes: F10.929 - Alcohol use, unspecified with intoxication, unspecified SNOMED: 54652522 Qualifiers: Qualified Codes: F10.920 - Alcohol use, unspecified with intoxication, uncomplicated (2) Generalized weakness Assessment & Plan: No Focal Weakness on exam except some limitation secondary to pain. Manage Pain Replace/ Correct Electrolyte imbalances PT/OT Eval Consider B Vitamin/Thiamin supplementation Banana bag IV ICD Codes: R53.1 - Weakness SNOMED: 88707502 (3) Knee pain, left ICD Codes: M25.562 - Pain in left knee SNOMED: 28445236 (4) Upper back pain on left side ICD Codes: M54.9 - Dorsalgia, unspecified SNOMED: 541646154 (5) Femur fracture, left ICD Codes: S72.92XA - Unspecified fracture of left femur, initial encounter for closed fracture SNOMED: 19475681 Qualifiers: Qualified Codes: S72.92XA - Unspecified fracture of left femur, initial encounter for closed fracture (6) Pain ICD Codes: R52 - Pain, unspecified SNOMED: 57172529 (7) Acute metabolic encephalopathy ICD Codes: G93.41 - Metabolic encephalopathy SNOMED: 52739629, 496771397 Kayleen Villarreal N.P. Oct 03, 2018 22:59
[2018-10-04] VITALS: BP 147/81
--- NOTE | 2018-10-04 01:35 | NUR ---
NURSE NOTES: Jalyn from [facility], called and informed Adriana RN to let the case packer know that they need a letter of agreement to accept the patient. Charge Nurse Paula made aware. Will endorse it to the morning nurse later.
--- NOTE | 2018-10-04 02:30 | Consultation ---
DATE OF CONSULTATION: 10/03/2018 ORTHOPEDIC CONSULT CONSULTING PHYSICIAN: Eliot Valentin M.D. HISTORY OF PRESENT ILLNESS: The patient is a pleasant 58-year-old gentleman who had a fall yesterday sustaining a left knee injury. He was seen in [facility] ER where he was noted to have a badly comminuted supracondylar fracture. He has a history of previous surgery here where he had a tibial plateau fracture treated with plates and screws and immobility. PAST MEDICAL HISTORY: None. PAST SURGICAL HISTORY: Left knee surgery. CURRENT MEDICATIONS: Please see chart. ALLERGIES: None. SOCIAL HISTORY: He has a fiancee he lives with and he is independent with all activities. PHYSICAL EXAMINATION: GENERAL: He is very pleasant. He is alert and oriented. He is able to give me an account of events leading up to hospitalization. EXTREMITIES: He has pain in the left knee. He is wearing a knee immobilizer currently. He has tenderness and discomfort upon palpation. He is neurovascularly intact. X-RAY: X-rays of the knee are reviewed. There is a badly comminuted V-shaped supracondylar fracture involving both medial and lateral femoral condyles and extended intra-articularly with displacement. There is also evidence of prior tibial surgery and hardware with question and concern of broken screws. Impression: Left badly comminuted and displaced V-shaped supracondylar fracture with intra-articular involvement in a patient with prior history of tibial fracture. DISCUSSION: At this time, I discussed with the patient my findings. He understands he has quite a significant fracture and injury, and given the nature of this fracture, this will require a higher level of care and transfer to a tertiary trauma facility where also trauma specialist can address this. He does understand that. We will go forward and initiate transfer to a higher level of care and the patient is in agreement with that. This is discussed with the patient as well as nursing who will assist in the transfer process. Thank you for allowing me to participate in the care of this patient. If you have any questions or concerns, please do not hesitate to contact me. Eliot Valentin M.D. Aleena Souza DR: KEVIN JOB#: [id number] CC: LAURA
[2018-10-04] MEDS: Morphine Sulfate 2mg/ml Inj(IV/IM USE ONLY) IVP PRN ×6 (04:00→23:56)
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
--- NOTE | 2018-10-04 07:25 | NUR ---
HAND-OFF: Report given to Kait Kelley RN.
--- NOTE | 2018-10-04 07:30 | NUR ---
NURSE NOTES: Patient is in bed awake and able to verbalize needs. Patient is stable. Denies pain or SOB at this time. Patient encouraged to use call light for assistance, verbalized understanding. All safety measures provided. Patient is in good spirits with call light within reach. All needs met at this time. Will continue to monitor.
[2018-10-04 08:00] VITALS: BP 158/93
[2018-10-04] MEDS: Heparin 5000 units/ml inj SUBQ SCH ×2 (09:38→21:51)
--- NOTE | 2018-10-04 10:30 | NUR ---
*-* INSURANCE *-* CLINICALS HAVE BEEN FAXED TO: [employer] CARRION:JUAN PABLO YUE# [phone] FAX CLINICALS TO [phone] Addendum: 10/04/18 at 1243 by GAURANG MALIK LVN LVN T: [phone]
[2018-10-04 12:00] VITALS: BP 175/102
--- NOTE | 2018-10-04 12:40 | NUR ---
TRANSFER UPDATE CALLED O AND SPOKE WITH BENSON FINISH PAINTER , JUAN PABLO. ASKED JUAN PABLO IF A LETTER OF AGREEMENT WAS BEING GENERATED FOR [facility]. PER JUAN PABLO SHE NEEDS TO CHECK WITH HER DOCTOR TO FIND OUT WHAT'S GOING ON AND WILL CALL THIS PLACEMENT MANAGER BACK Addendum: 10/04/18 at 1445 by GAURANG MALIK LVN LVN 1330 ~ CALLED PLACEMENT MANAGER JUAN PABLO @ [phone]...NO ANSWER...LEFT [facility] 1430 ~ CALLED PLACEMENT MANAGER JUAN PABLO @ [phone]...NO ANSWER...LEFT [facility]
--- NOTE | 2018-10-04 13:00 | NUR ---
NURSE NOTES: Patient's blood pressure is 175/102. Dr. Badlwin made aware of patient's high blood pressure. Patient is stable. Will carry out new orders.
--- NOTE | 2018-10-04 13:43 | Consultation ---
History of Present Illness General Chief Complaint: Lower Extremity Injury Present Illness Allergies: Coded Allergies: No Known Allergies (Unverified , 01/05/17) Medication History Discontinued Medications Acetaminophen* (Tylenol Extra Strength*), 500 MG ORAL Q6H PRN for Mild Pain/ Temp > 100.5 Discontinued Reason: Therapy completed Acetaminophen* (Tylenol Extra Strength*), 500 MG ORAL Q8H PRN for Prn Headache/ Temp > 101 Discontinued Reason: Therapy completed Albuterol Sulfate* (Albuterol Sulfate Mdi*), 2 PUFF INH Q4H Discontinued Reason: Therapy completed Capsaicin (Capsaicin), 1 GM TP TID Discontinued Reason: Therapy completed Codeine/Promethazine Hcl* (Promethazine-Codeine Syrup*), 5 ML ORAL Q6H PRN for For Cough Discontinued Reason: Therapy completed Codeine/Promethazine Hcl* (Promethazine-Codeine Syrup*), 5 ML ORAL Q6H PRN for For Cough Discontinued Reason: Therapy completed Fluticasone Propionate* (Fluticasone Propionate*), 1 SPRAY NASAL TWICE A DAY Discontinued Reason: Therapy completed Gabapentin* (Gabapentin*), 200 MG ORAL THREE TIMES A DAY Discontinued Reason: Therapy completed Gabapentin* (Gabapentin*), 100 MG ORAL THREE TIMES A DAY Discontinued Reason: Therapy completed Guaifenesin (Guaifenesin), 1,200 MG PO BID Discontinued Reason: Therapy completed Guaifenesin (Guaifenesin), 1,200 MG PO BID Discontinued Reason: Therapy completed Hydrocodone Bit/Acetaminophen 5-325* ([place] 5-325 Tablet*), 1 TAB ORAL Q6HR PRN for For Pain Discontinued Reason: Therapy completed Ibuprofen* (Motrin*), 600 MG ORAL Q8H PRN for For Pain Discontinued Reason: Therapy completed Lisinopril (Lisinopril*), 5 MG ORAL DAILY Discontinued Reason: Therapy completed Lisinopril (Lisinopril*), 5 MG ORAL DAILY Discontinued Reason: Therapy completed Loratadine (Loratadine), 10 MG PO DAILY Discontinued Reason: Therapy completed Loratadine/Pseudoephedrine (Claritin-D 12 Hour Tablet), 1 TAB ORAL EVERY 12 HOURS Discontinued Reason: Therapy completed Methocarbamol* (Robaxin-750*), 750 MG PO TID Discontinued Reason: Therapy completed Ofloxacin (Ocuflox), 2 DROP OP TID Discontinued Reason: Therapy completed Prednisone* (Prednisone*), 60 MG ORAL DAILY Discontinued Reason: Therapy completed Promethazine Hcl (Promethazine Hcl*), 5 ML ORAL Q8H Discontinued Reason: Therapy completed Unable to Obtain Medications (Unable To Obtain Meds), (Reported) Discontinued Reason: Therapy completed Patient History Healthcare decision maker Resuscitation status Full Code Advanced Directive on File Physical Exam Last 24 Hour Vital Signs Date Time Temp Pulse Resp B/P (MAP) Pulse Ox O2 Delivery O2 Flow Rate FiO2 10/04/18 12:00 97.4 114 19 175/102 (126) 97 10/04/18 09:00 Room Air 10/04/18 08:00 97.6 116 20 158/93 (114) 95 10/04/18 00:00 98.4 111 18 147/81 (103) 96 10/03/18 21:00 Room Air 10/03/18 20:00 99.5 115 18 125/79 (94) 96 10/03/18 18:16 99.0 10/03/18 16:00 99.0 108 19 140/80 (100) 98 Intake and Output 10/03/18 10/04/18 19:00 07:00 Intake Total 825 ml 885 ml Output Total 200 ml 200 ml Balance 625 ml 685 ml Intake Oral 300 ml 360 ml IV Total 525 ml 525 ml Output Urine Total 200 ml 200 ml Height (Feet): 6 Height (Inches): 1.00 Weight (Pounds): 173 Medications Current Medications Medications (Trade) Dose Ordered Sig/Héctor Route PRN Reason Start Time Stop Time Status Last Admin Dose Admin Acetaminophen (Tylenol) 500 mg Q4H PRN ORAL Mild Pain (Pain Scale 1-3) 10/03/18 07:00 11/02/18 06:59 Amlodipine Besylate (Norvasc) 5 mg DAILY ORAL 10/05/18 09:00 11/04/18 08:59 Amlodipine Besylate (Norvasc) 5 mg ONCE ORAL 10/04/18 13:29 10/04/18 14:30 Clonidine HCl (Catapres Tab) 0.1 mg Q4H PRN ORAL bp over 160 syst and 100 vinson 10/04/18 13:30 11/03/18 13:29 Heparin Sodium (Porcine) (Heparin 5000 units/ml) 5,000 units EVERY 12 HOURS SUBQ 10/03/18 09:00 11/02/18 08:59 10/04/18 09:38 Morphine Sulfate (Morphine Sulfate) 2 mg Q4H PRN IVP Severe Pain (Pain Scale 7-10) 10/03/18 07:00 10/10/18 06:59 10/04/18 09:55 Sodium Chloride 1,000 ml @ 75 mls/hr [id number] IV 10/03/18 21:00 11/02/18 20:59 10/04/18 09:38 Assessment/Plan Assessment/Plan: Hematology Consultation REQ MD: Bar Salazar RFC: Macrocytosis, mcv elevated DOS: 10/04/18 HPI This is a 70-[id number]-qso-year-old male with previous left knee surgery. He presents with chief point of left knee pain. He said he tripped and fell and landed on his knee. Now is swollen and he can't move it. Pain is 8 out of 10. Worse with movement. Better with rest. No other injury. No other trauma. Has been seen by ortho and currently is pending potnetial transfer to [facility], heme consulted at this time for a high mcv. Allergies: No Known Allergies (Unverified , 01/05/17) Past Medical History: see triage record, old chart reviewed Past Surgical History: other Pertinent Family History: none Social History: Reports: alcohol use; Denies: smoking Immunizations: other Reviewed Nursing Documentation: PMH: Agreed; PSxH: Agreed Past Medical History: No History, Except For Hx Cardiac Problems: No - degenerative spine disease Hx Hypertension: Yes Hx COPD: Yes ROS Eye: Denies: eye pain, blurred vision ENT: Denies: ear pain, nose congestion, throat swelling Respiratory: Denies: cough, shortness of breath Cardiovascular: Denies: chest pain, palpitations Gastrointestinal: Denies: abdominal pain, diarrhea, nausea, vomiting Musculoskeletal: Reports: joint pain, joint swelling; Denies: back pain Skin: Denies: rash Neurological: Denies: headache, numbness Endocrine: Denies: increased thirst, increased urine Hematologic/Lymphatic: Denies: easy bruising All Other Systems: negative except mentioned in HPI PE vitals normal Sp02 EP Interpretation: reviewed, normal General Appearance: well appearing Head: normocephalic, atraumatic Eyes: bilateral eye PERRL, bilateral eye EOMI ENT: hearing grossly normal, normal pharynx Neck: full range of motion, supple, no meningismus Respiratory: chest non-tender, lungs clear Cardiovascular #1: regular rate, rhythm, no murmur Gastrointestinal: normal bowel sounds, non tender Musculoskeletal: back normal, other - Left knee: Diffuse effusion Psychiatric: mood/affect normal Skin: warm/dry Labs: reviewed Imaging: reviewed Assessment and Recs: # Macrocytosis is very likely related to underlying alcohol use by the pateint, which caused his fall --> b12, folate, tsh have been ordered --> us of the abd but can be done as an outpatient --> given mcv 102, is okay for surgery, has heme clearance # Femur left knee fracture --> orthopedic surgeyr has been consulted --> no bleeding, closed fracture --> currently splinted # Alcohol intoxication --> recommend cessation --> monitor for withdrawals The timing of this note does not necessarily reflect the time of the patient was seen. Greatly appreciate consultation! Nile Kerr MD Oct 04, 2018 13:43
--- NOTE | 2018-10-04 14:02 | NUR ---
NURSE NOTES: clinical data manager working on transferring patient.
--- NOTE | 2018-10-04 15:24 | NUR ---
TRANSFER UPDATE SPOKE WITH O EMERGENCY DEPARTMENT CLINICIANJUAN PABLO [facility] IS TRYING TO FIND ACCEPTING ORTHOPEDIC SURGEON AT [facility] WHICH IS ONE OF THEIR CONTRACTED FACILITIES PROVIDED EMERGENCY DEPARTMENT CLINICIAN, JUAN PABOL, WITH NAME OF SAUSAGE STUFFER AND PHONE NUMBER TO [facility] FINANCE DEPARTMENT FOR LETTER OF AGREEMENT IN CASE THEY ARE UNABLE TO SECURE BED AT [facility] ALSO PROVIDED JUAN PABLO WITH PHONE NUMBER TO [address] [place] [address]
--- NOTE | 2018-10-04 15:29 | NUR ---
CASE MANAGEMENT:REVIEW 10/04/18 SI: LEFT FEMUR FRACTURE ALCOHOL INTOXICATION 97.4 114 19 175/102 97% ON RA IS: NORVASC PO QD IVF @ 75/HR HEPARIN SQ Q12 IV MORPHINE Q4HRS PRN : MED/SURG STATUS 3 EAST PLAN: NOTIFIED [facility] SENIOR FRONT END DEVELOPER YESTERDAY FOR NEED TO TRANSFER TO HIGHER LEVEL OF CARE. WE ARE STILL WAITING FOR TRANSFER APPROVAL. [facility] IS WILLING TO ACCEPT IF A LETTER OF AGREEMENT IS PROVIDED. THEY ALSO HAVE AN ACCEPTING PHYSICIAN
[2018-10-04] MEDS ORDERED: Metoprolol Tartrate 12.5mg TAB ORAL SCH ×2 (15:55→21:00)
--- NOTE | 2018-10-04 15:57 | Consultation ---
Consult Note Consult Note asked to eval by Dr Hood for HTN management patient fell , broke his distal femur had high alcohol level in blood his is a 77-ewsq-zfd-year-old male with previous left knee surgery. He presents with chief point of left knee pain. He said he tripped and fell and landed on his knee. Now is swollen and he can't move it. Pain is 8 out of 10. Worse with movement. Better with rest. No other injury. No other trauma. No Known Allergies (Unverified , 01/05/17) Past Medical History: see triage record, old chart reviewed Past Surgical History: other Pertinent Family History: none Social History: Reports: alcohol use; Past Medical History: No History, Except For Hx Cardiac Problems: No - degenerative spine disease Hx Hypertension: Yes Hx COPD: Yes interviewed examined data reviewed Assessment/Plan HTN OOC ETOH intoxication on admit , h/o abuse Left badly comminuted and displaced V-shaped supracondylar fracture with intra-articular involvement in a patient with prior history of tibial fracture. Plan Thiamin Folate Librium Hydrate Lopressor and Norvasc PRN Clonidine Monitor labs Mickey Baldwin MD Oct 04, 2018 15:57
[2018-10-04 16:00] VITALS: BP 158/98
[2018-10-04] MEDS ORDERED: chlordiazePOXIDE 25mg Cap ORAL SCH (16:00)
[2018-10-04] MEDS: Thiamine 100mg tab ORAL SCH (16:26)
--- NOTE | 2018-10-04 18:30 | Neurology Progress Note ---
Objective Physical Exam Last Vital Signs Date Time Temp Pulse Resp B/P (MAP) Pulse Ox O2 Delivery O2 Flow Rate FiO2 10/04/18 16:26 119 158/98 10/04/18 16:00 98.5 21 98 10/04/18 09:00 Room Air Laboratory Tests Test 10/04/18 14:35 Vitamin B12 Level 305 PG/ML (193-986) Folate 14.7 NG/ML (8.6-58.9) Thyroid Stimulating Hormone (TSH) 0.522 uiU/mL (0.358-3.740) Impression/Recommendations Problems: (1) Alcohol intoxication Assessment & Plan: Consider CIWA protocol with Banana Bag and W/D scale use +/ - ATIVAN for symptoms. Psych consultation IF W/D symptoms Q4 Hour Neuro Obs Hydration/ IVH Maintain normoglycemia HgBA1c check (2) Generalized weakness Assessment & Plan: No Focal Weakness on exam except some limitation secondary to pain. Manage Pain Replace/ Correct Electrolyte imbalances PT/OT Eval Consider B Vitamin/Thiamin supplementation Banana bag IV (3) Knee pain, left (4) Upper back pain on left side (5) Femur fracture, left (6) Pain (7) Acute metabolic encephalopathy Kayleen Villarreal N.P. Oct 04, 2018 18:30
--- NOTE | 2018-10-04 19:30 | NUR ---
NURSE NOTES: Received report from BUNNY Carballo. Patient stable, complains of pain, see eMAR. Bed in low position, call light within reach. Will continue to monitor
--- NOTE | 2018-10-04 19:30 | NUR ---
HAND-OFF: Report given to Aleisha HOLLIS. Patient is stable.
[2018-10-04 20:00] VITALS: BP 157/88
--- NOTE | 2018-10-04 20:00 | NUR ---
NURSE NOTES: Left leg in immobilizer, ice packs applied. Will continue to monitor.
--- NOTE | 2018-10-04 20:57 | General Progress Note ---
Assessment/Plan Problem List: (1) Femur fracture, left ICD Codes: S72.92XA - Unspecified fracture of left femur, initial encounter for closed fracture SNOMED: 11667512 Qualifiers: Qualified Codes: S72.92XA - Unspecified fracture of left femur, initial encounter for closed fracture (2) Knee pain, left ICD Codes: M25.562 - Pain in left knee SNOMED: 81468171 (3) Upper back pain on left side ICD Codes: M54.9 - Dorsalgia, unspecified SNOMED: 660874097 (4) Pain ICD Codes: R52 - Pain, unspecified SNOMED: 54596146 Status: progressing Assessment/Plan: afebrile pain due to fracture awaiting transferring to another hospital to do fracture repair Subjective ROS Limited/Unobtainable: Yes Allergies: Coded Allergies: No Known Allergies (Unverified , 01/05/17) Objective Last 24 Hour Vital Signs Date Time Temp Pulse Resp B/P (MAP) Pulse Ox O2 Delivery O2 Flow Rate FiO2 10/04/18 16:26 119 158/98 10/04/18 16:00 98.5 119 21 158/98 (118) 98 10/04/18 13:40 114 175/102 10/04/18 12:00 97.4 114 19 175/102 (126) 97 10/04/18 09:00 Room Air 10/04/18 08:00 97.6 116 20 158/93 (114) 95 10/04/18 00:00 98.4 111 18 147/81 (103) 96 10/03/18 21:00 Room Air Intake and Output 10/03/18 10/04/18 18:59 06:59 Intake Total 750 ml 960 ml Output Total 200 ml 200 ml Balance 550 ml 760 ml Intake Oral 300 ml 360 ml IV Total 450 ml 600 ml Output Urine Total 200 ml 200 ml Laboratory Tests 10/04/18 14:35: Vitamin B12 Level 305, Folate 14.7, Thyroid Stimulating Hormone (TSH) 0.522 Height (Feet): 6 Height (Inches): 1.00 Weight (Pounds): 173 Neck: supple Cardiovascular: normal rate Respiratory/Chest: lungs clear Abdomen: soft Bradley Salazar MD Oct 04, 2018 20:57
[2018-10-04] MEDS: chlordiazePOXIDE 25mg Cap ORAL SCH (21:48)
--- NOTE | 2018-10-04 23:53 | NUR ---
NURSE NOTES: Received report from BUNNY Moraes and rounds made. Received pt lying in bed, A/OX4, pain level 8/10 to left knee, no distress noted. L knee immobilizer in-place. IV R FA #20 patent and intact. IV fluid infusing as ordered. Bed in lowest position and locked, side rails up x 2, call light within reach. Will continue to monitor.
[2018-10-05] VITALS: BP 130/77
--- NOTE | 2018-10-05 | NUR ---
HAND-OFF: Report given to BUNNY Murrell.
[2018-10-05] MEDS: Morphine Sulfate 2mg/ml Inj(IV/IM USE ONLY) IVP PRN ×3 (03:52→19:47)
[2018-10-05 04:00] VITALS: BP 151/79
[2018-10-05] MEDS: chlordiazePOXIDE 25mg Cap ORAL SCH ×3 (05:27→21:19)
[2018-10-05 07:01] LABS: BASOPHILS % (AUTO) 0.9 % (0.0-2.0); EOSINOPHILS % (AUTO) 0.4 % (0.0-3.0); HEMATOCRIT 31.2 % (42.0-52.0); HEMOGLOBIN 10.5 G/DL (14.2-18.0); LYMPHOCYTES % (AUTO) 21.5 % (20.0-45.0); MEAN CORPUSCULAR VOLUME 104 FL (80-99); MONOCYTES % (AUTO) 15.6 % (1.0-10.0); NEUTROPHILS % (AUTO) 61.5 % (45.0-75.0); PLATELET COUNT 167 K/UL (150-450); RED BLOOD COUNT 3.01 M/UL (4.70-6.10); RED CELL DISTRIBUTION WIDTH 13.1 % (11.6-14.8); WHITE BLOOD COUNT 6.9 K/UL (4.8-10.8)
[2018-10-05 07:05] LABS: ALANINE AMINOTRANSFERASE 19 U/L (12-78); ALBUMIN 3.2 G/DL (3.4-5.0); ALBUMIN/GLOBULIN RATIO 0.7 (1.0-2.7); ALKALINE PHOSPHATASE 83 U/L (46-116); ANION GAP 6 mmol/L (5-15); ASPARTATE AMINO TRANSFERASE 14 U/L (15-37); BILIRUBIN,TOTAL 0.6 MG/DL (0.2-1.0); BLOOD UREA NITROGEN 11 mg/dL (7-18); CALCIUM 9.3 MG/DL (8.5-10.1); CARBON DIOXIDE 30 MMOL/L (21-32); CHLORIDE 100 MMOL/L (98-107); CHOLESTEROL 177 MG/DL (< 200); CREATINE KINASE 222 U/L (26-308); CREATININE 0.9 MG/DL (0.55-1.30); GAMMA GLUTAMYL TRANSPEPTIDASE 30 U/L (5-85); HDL CHOLESTEROL 81 MG/DL (40-60); PHOSPHORUS 2.6 MG/DL (2.5-4.9); POTASSIUM 4.2 MMOL/L (3.5-5.1); SODIUM 136 MMOL/L (136-145); TRIGLYCERIDES 71 MG/DL (30-150)
--- NOTE | 2018-10-05 07:50 | NUR ---
HAND-OFF: Report given to BUNNY Moeller. Pt in stable condition.
[2018-10-05 08:00] VITALS: BP 163/86
--- NOTE | 2018-10-05 08:00 | NUR ---
NURSE NOTES: Received report from Handy HOLLIS. Patient is awake alert and oriented x4, no acute distress noted. Reporting pain in left knee, will medicate per order. IV running per order. Patient updated on plan of care. Side rails upx3, bed low and locked, call light in reach. Will continue to monitor.
[2018-10-05 08:48] LABS: % IRON SATURATION 10 % (15-50); IRON 20 ug/dL (50-175); TOTAL IRON BINDING CAPACITY 194 ug/dL (250-450)
[2018-10-05] MEDS ORDERED: Metoprolol 25mg tab ORAL SCH (09:00)
[2018-10-05 09:04] LABS: FERRITIN 279 NG/ML (8-388)
--- NOTE | 2018-10-05 09:23 | NUR ---
TRANSFER UPDATE CALLED OWNER/PHOTOGRAPHER JUAN PABLO @ [phone]...NO ANSWER...LEFT YOVANI REGARDING HIGHER LEVEL OF CARE TRANSFER Addendum: 10/05/18 at 1105 by GAURANG MALIK LVN LVN SECOND MESSAGE LEFT FOR SHEYLA ALMEIDA REGARDING TRANSFER...AWAITING RESPONSE
[2018-10-05] MEDS: Heparin 5000 units/ml inj SUBQ SCH ×2 (09:59→20:32)
[2018-10-05] MEDS: Thiamine 100mg tab ORAL SCH (10:00)
--- NOTE | 2018-10-05 10:19 | NUR ---
*-* INSURANCE *-* CLINICALS HAVE BEEN FAXED TO: SILVIA CARRION:JUAN PABLO TURNER# [id number] FAX CLINICALS TO [phone] T: [phone]
[2018-10-05 12:00] VITALS: BP 139/84
--- NOTE | 2018-10-05 12:22 | Nephrology Progress Note ---
Assessment/Plan Problem List: (1) Alcohol intoxication (2) Generalized weakness (3) Accelerated hypertension (4) Anemia Assessment HTN OOC ETOH intoxication on admit , h/o abuse Left badly comminuted and displaced V-shaped supracondylar fracture with intra-articular involvement in a patient with prior history of tibial fracture. Plan Thiamin Folate Librium Hydrate Lopressor and Norvasc and lisinopril PRN Clonidine Monitor labs IV venofer Subjective ROS Limited/Unobtainable: No Constitutional: Reports: malaise Objective Objective Last 24 Hour Vital Signs Date Time Temp Pulse Resp B/P (MAP) Pulse Ox O2 Delivery O2 Flow Rate FiO2 10/05/18 10:40 98.5 10/05/18 09:58 114 163/86 10/05/18 09:58 114 163/86 10/05/18 09:00 Room Air 10/05/18 08:00 98.5 114 20 163/86 (111) 98 10/05/18 04:00 98.4 103 18 151/79 (103) 96 10/05/18 00:00 98.7 104 18 130/77 (94) 97 10/04/18 21:48 100 157/88 10/04/18 21:00 100 20 10/04/18 21:00 Room Air 10/04/18 20:00 98.8 112 18 157/88 (111) 97 10/04/18 16:26 119 158/98 10/04/18 16:00 98.5 119 21 158/98 (118) 98 10/04/18 13:40 114 175/102 Intake and Output 10/04/18 10/05/18 19:00 07:00 Intake Total 300 ml 1100 ml Output Total 400 ml 750 ml Balance -100 ml 350 ml Intake Oral 300 ml 200 ml IV Total 900 ml Output Urine Total 400 ml 750 ml Laboratory Tests 10/04/18 14:35: Vitamin B12 Level 305, Folate 14.7, Thyroid Stimulating Hormone (TSH) 0.522 10/05/18 05:20: White Blood Count 6.9, Red Blood Count 3.01L, Hemoglobin 10.5L, Hematocrit 31.2L , Mean Corpuscular Volume 104H, Mean Corpuscular Hemoglobin 34.7H, Mean Corpuscular Hemoglobin Concent 33.5, Red Cell Distribution Width 13.1, Platelet Count 167, Mean Platelet Volume 7.5, Neutrophils (%) (Auto) 61.5, Lymphocytes (% ) (Auto) 21.5, Monocytes (%) (Auto) 15.6H, Eosinophils (%) (Auto) 0.4, Basophils (%) (Auto) 0.9, Sodium Level 136, Potassium Level 4.2, Chloride Level 100, Carbon Dioxide Level 30, Anion Gap 6, Blood Urea Nitrogen 11, Creatinine 0.9, Estimat Glomerular Filtration Rate > 60, Glucose Level 109H, Hemoglobin A1c 5.4, Uric Acid 5.3, Calcium Level 9.3, Phosphorus Level 2.6, Magnesium Level 1.9, Iron Level 20L, Total Iron Binding Capacity 194L, Percent Iron Saturation 10L, Unsaturated Iron Binding 174, Ferritin 279, Total Bilirubin 0.6 , Gamma Glutamyl Transpeptidase 30, Aspartate Amino Transf (AST/SGOT) 14L, Alanine Aminotransferase (ALT/SGPT) 19, Alkaline Phosphatase 83, Total Creatine Kinase 222, C-Reactive Protein, Quantitative 11.8H, Pro-B-Type Natriuretic Peptide 52, Total Protein 7.6, Albumin 3.2L, Globulin 4.4, Albumin/Globulin Ratio 0.7L, Triglycerides Level 71, Cholesterol Level 177, LDL Cholesterol 70, HDL Cholesterol 81H, Cholesterol/HDL Ratio 2.2L Height (Feet): 6 Height (Inches): 1.00 Weight (Pounds): 173 General Appearance: no apparent distress Cardiovascular: tachycardia Abdomen: non tender Mickey Baldwin MD Oct 05, 2018 12:22
--- NOTE | 2018-10-05 13:02 | NUR ---
CASE MANAGEMENT:REVIEW 10/05/18 SI: COMPLEX LEFT FEMUR FRACTURE 98.5 114 20 163/86 98% ON RA H/H-10.5/31.2 IS: LOPRESSOR PO Q12 FLOMAX PO QHS LISINOPRIL PO BID IVF@50/HR NORVASC PO QD HEPARIN SQ Q12 LIBRIUM PO Q8HRS PEPCID PO BID IV MORPHINE Q4HRS PRN : MED/SURG STATUS 3 EAST PLAN: WAITING FOR TRANSFER TO HIGHER LEVEL OF CARE
--- NOTE | 2018-10-05 13:06 | NUR ---
DISCHARGE PLANNING SILVIA CASTILLO IS WORKING ON PROVIDING A LETTER OF AGREEMENT FOR [facility] ONCE AGREEMENT HAS BEEN RECEIVED BY [facility] WE WILL RECEIVE INSTRUCTIONS FROM [facility] TRANSFER [facility] T: [phone] *FOR TRANSPORTATION WE CAN USE "[facility]" Addendum: 10/05/18 at 1604 by GAURANG MALIK LVN LVN LEFT MESSAGE FOR JUAN PABLO @ [phone] REQUESTING UPDATE ON LETTER OF AGREEMENT FOR TRANSFER CALLED [facility] TRANSFER [facility] T: [phone] AND SPOKE WITH ELIO WHO STATED THEY HAVE NOT YET RECEIVED THE LETTER OF AGREEMENT FROM SILVIA CASTILLO Addendum: 10/05/18 at 1609 by GAURANG MALIK LVN LVN RECEIVED CALL BACK FROM JUAN PABLO [employer] PROVIDED AUTH NUMBER [id number] FOR [facility] TRANSPORT HOWEVER THERE IS STILL NOT A LETTER OF AGREEMENT FOR [facility] TO ACCEPT PATIENT ACCEPTING PHYSICIAN WILL BE DR JUNG CHARLTON
[2018-10-05] MEDS: Docusate 100mg cap ORAL SCH ×2 (13:27→18:01)
--- NOTE | 2018-10-05 14:32 | Diagnostic Imaging Report ---
Indication: Headache Technique: Contiguous 5 mm thick transaxial imaging of the head obtained in a Siemens Sensation [address] scanner. Soft tissue and bone windows generated. Automatic Exposure Control was utilized. Total Dose length Product (DLP): 1340.[address] Dose Index Volume (CTDIvol): 70.38 mGy Comparison: 10/19/2017 Findings: There is mild prominence of the ventricles, basal cisterns, and cerebral sulci consistent with atrophy. Minimal, nonspecific, white matter hypoattenuation is noted throughout the brain consistent with chronic small vessel disease. There is no midline shift, edema, acute hemorrhage, mass effect, or abnormal extra-axial fluid collections. Bones and extra osseous soft tissues are unremarkable. Impression: No acute intracranial bleed, mass effect or edema. Mild atrophy of the brain. Nonspecific white matter hypoattenuation probably due to chronic small vessel disease. The CT scanner at [facility] is accredited by the [employer] and the scans are performed using dose optimization techniques as appropriate to a performed exam including Automatic Exposure control.
[2018-10-05] MEDS ORDERED: Iron Sucrose 200 MG in NS 110 ML IV SCH (15:00)
--- NOTE | 2018-10-05 15:32 | General Progress Note ---
Assessment/Plan Status: progressing Assessment/Plan: Assessment and Recs: # Anemia of chronic disease due to underlying chronic medical issues, multifactorial and myelosuppresion --> Anemia workup has been ordered, rule out gi bleed --> No evidence of hemolysis is noted, peripheral smear has been reviewed. --> Hgb goal >7. Transfuse prn. --> Epogen or iron at this time is not particularly indicated --> Medications have been reviewed --> evaluate with Gi team prn --> transfuse if hgb is < 7 (will trend CBC daily) --> low threshold for gi evaluation in case has occult + # Macrocytosis is very likely related to underlying alcohol use by the pateint, which caused his fall --> b12, folate, tsh have been ordered --> us of the abd but can be done as an outpatient --> given mcv 102, is okay for surgery, has heme clearance --> on thiamine, folic acid, iron iv # Femur left knee fracture --> orthopedic surgeyr has been consulted --> no bleeding, closed fracture --> currently splinted # Alcohol intoxication --> recommend cessation --> monitor for withdrawals The timing of this note does not necessarily reflect the time of the patient was seen. Greatly appreciate consultation! Subjective Constitutional: Denies: no symptoms, chills, diaphoresis, fever, malaise, weakness, other HEENT: Denies: no symptoms, eye pain, blurred vision, tearing, double vision, ear pain, ear discharge, nose pain, nose congestion, throat pain, throat swelling, mouth pain, mouth swelling, other Cardiovascular: Denies: no symptoms, chest pain, edema, irregular heart rate, lightheadedness, palpitations, syncope, other Respiratory: Denies: no symptoms, cough, orthopnea, shortness of breath, SOB with excertion, SOB at rest, sputum, stridor, wheezing, other Endocrine: Denies: no symptoms, excessive sweating, flushing, intolerance to cold, intolerance to heat, increased hunger, increased thirst, increased urine, unexplained weight gain, unexplained weight loss, other Hematologic/Lymphatic: Denies: no symptoms, anemia, easy bleeding, easy bruising, other Allergies: Coded Allergies: No Known Allergies (Unverified , 01/05/17) Subjective 10/05: pending transfer to another hospital for potential of surgery, getting iv iron Objective Last 24 Hour Vital Signs Date Time Temp Pulse Resp B/P (MAP) Pulse Ox O2 Delivery O2 Flow Rate FiO2 10/05/18 12:00 98.4 97 20 139/84 (102) 97 10/05/18 10:40 98.5 10/05/18 09:58 114 163/86 10/05/18 09:58 114 163/86 10/05/18 09:00 Room Air 10/05/18 08:00 98.5 114 20 163/86 (111) 98 10/05/18 04:00 98.4 103 18 151/79 (103) 96 10/05/18 00:00 98.7 104 18 130/77 (94) 97 10/04/18 21:48 100 157/88 10/04/18 21:00 100 20 10/04/18 21:00 Room Air 10/04/18 20:00 98.8 112 18 157/88 (111) 97 10/04/18 16:26 119 158/98 10/04/18 16:00 98.5 119 21 158/98 (118) 98 Intake and Output 10/04/18 10/05/18 19:00 07:00 Intake Total 300 ml 1100 ml Output Total 400 ml 750 ml Balance -100 ml 350 ml Intake Oral 300 ml 200 ml IV Total 900 ml Output Urine Total 400 ml 750 ml Laboratory Tests 10/05/18 05:20: White Blood Count 6.9, Red Blood Count 3.01L, Hemoglobin 10.5L, Hematocrit 31.2L , Mean Corpuscular Volume 104H, Mean Corpuscular Hemoglobin 34.7H, Mean Corpuscular Hemoglobin Concent 33.5, Red Cell Distribution Width 13.1, Platelet Count 167, Mean Platelet Volume 7.5, Neutrophils (%) (Auto) 61.5, Lymphocytes (% ) (Auto) 21.5, Monocytes (%) (Auto) 15.6H, Eosinophils (%) (Auto) 0.4, Basophils (%) (Auto) 0.9, Sodium Level 136, Potassium Level 4.2, Chloride Level 100, Carbon Dioxide Level 30, Anion Gap 6, Blood Urea Nitrogen 11, Creatinine 0.9, Estimat Glomerular Filtration Rate > 60, Glucose Level 109H, Hemoglobin A1c 5.4, Uric Acid 5.3, Calcium Level 9.3, Phosphorus Level 2.6, Magnesium Level 1.9, Iron Level 20L, Total Iron Binding Capacity 194L, Percent Iron Saturation 10L, Unsaturated Iron Binding 174, Ferritin 279, Total Bilirubin 0.6 , Gamma Glutamyl Transpeptidase 30, Aspartate Amino Transf (AST/SGOT) 14L, Alanine Aminotransferase (ALT/SGPT) 19, Alkaline Phosphatase 83, Total Creatine Kinase 222, C-Reactive Protein, Quantitative 11.8H, Pro-B-Type Natriuretic Peptide 52, Total Protein 7.6, Albumin 3.2L, Globulin 4.4, Albumin/Globulin Ratio 0.7L, Triglycerides Level 71, Cholesterol Level 177, LDL Cholesterol 70, HDL Cholesterol 81H, Cholesterol/HDL Ratio 2.2L Height (Feet): 6 Height (Inches): 1.00 Weight (Pounds): 173 Objective PE vitals normal Sp02 EP Interpretation: reviewed, normal General Appearance: well appearing Head: normocephalic, atraumatic Eyes: bilateral eye PERRL, bilateral eye EOMI ENT: hearing grossly normal, normal pharynx Neck: full range of motion, supple, no meningismus Respiratory: chest non-tender, lungs clear Cardiovascular #1: regular rate, rhythm, no murmur Gastrointestinal: normal bowel sounds, non tender Musculoskeletal: back normal, other - Left knee: Diffuse effusion Psychiatric: mood/affect normal Skin: warm/dry Nile Kerr MD Oct 05, 2018 15:32
[2018-10-05 16:00] VITALS: BP 139/81
[2018-10-05] MEDS: Lisinopril 10mg tab ORAL SCH (18:01)
--- NOTE | 2018-10-05 19:17 | NUR ---
HAND-OFF: Report given to Handy HOLLIS. Patient is in stable condition.
--- NOTE | 2018-10-05 19:30 | NUR ---
NURSE NOTES: Received report from BUNNY Moeller and rounds made. Received pt in bed AOX4, pain level 8/10, Morphine 2mg IVP given. IV L FA patent and intact. IV fluid infusing as ordered. No distress noted. Bed in lowest position and locked, side rails up x 2, call light within reach. Will continue to monitor.
--- NOTE | 2018-10-05 19:43 | General Progress Note ---
Assessment/Plan Problem List: (1) Femur fracture, left ICD Codes: S72.92XA - Unspecified fracture of left femur, initial encounter for closed fracture SNOMED: 90458660 Qualifiers: Qualified Codes: S72.92XA - Unspecified fracture of left femur, initial encounter for closed fracture (2) Knee pain, left ICD Codes: M25.562 - Pain in left knee SNOMED: 35035933 (3) Upper back pain on left side ICD Codes: M54.9 - Dorsalgia, unspecified SNOMED: 946711361 (4) Pain ICD Codes: R52 - Pain, unspecified SNOMED: 95880645 Status: progressing Assessment/Plan: orif per dr chavarria pain due to fracture awaiting transferring to another hospital to do fracture repair Subjective ROS Limited/Unobtainable: Yes Allergies: Coded Allergies: No Known Allergies (Unverified , 01/05/17) Objective Last 24 Hour Vital Signs Date Time Temp Pulse Resp B/P (MAP) Pulse Ox O2 Delivery O2 Flow Rate FiO2 10/05/18 18:01 139/81 10/05/18 16:00 97.6 103 20 139/81 (100) 98 10/05/18 12:00 98.4 97 20 139/84 (102) 97 10/05/18 10:40 98.5 10/05/18 09:58 114 163/86 10/05/18 09:58 114 163/86 10/05/18 09:00 Room Air 10/05/18 08:00 98.5 114 20 163/86 (111) 98 10/05/18 04:00 98.4 103 18 151/79 (103) 96 10/05/18 00:00 98.7 104 18 130/77 (94) 97 10/04/18 21:48 100 157/88 10/04/18 21:00 100 20 10/04/18 21:00 Room Air 10/04/18 20:00 98.8 112 18 157/88 (111) 97 Intake and Output 10/04/18 10/05/18 19:00 07:00 Intake Total 300 ml 1175 ml Output Total 400 ml 750 ml Balance -100 ml 425 ml Intake Oral 300 ml 200 ml IV Total 975 ml Output Urine Total 400 ml 750 ml Laboratory Tests 10/05/18 05:20: White Blood Count 6.9, Red Blood Count 3.01L, Hemoglobin 10.5L, Hematocrit 31.2L , Mean Corpuscular Volume 104H, Mean Corpuscular Hemoglobin 34.7H, Mean Corpuscular Hemoglobin Concent 33.5, Red Cell Distribution Width 13.1, Platelet Count 167, Mean Platelet Volume 7.5, Neutrophils (%) (Auto) 61.5, Lymphocytes (% ) (Auto) 21.5, Monocytes (%) (Auto) 15.6H, Eosinophils (%) (Auto) 0.4, Basophils (%) (Auto) 0.9, Sodium Level 136, Potassium Level 4.2, Chloride Level 100, Carbon Dioxide Level 30, Anion Gap 6, Blood Urea Nitrogen 11, Creatinine 0.9, Estimat Glomerular Filtration Rate > 60, Glucose Level 109H, Hemoglobin A1c 5.4, Uric Acid 5.3, Calcium Level 9.3, Phosphorus Level 2.6, Magnesium Level 1.9, Iron Level 20L, Total Iron Binding Capacity 194L, Percent Iron Saturation 10L, Unsaturated Iron Binding 174, Ferritin 279, Total Bilirubin 0.6 , Gamma Glutamyl Transpeptidase 30, Aspartate Amino Transf (AST/SGOT) 14L, Alanine Aminotransferase (ALT/SGPT) 19, Alkaline Phosphatase 83, Total Creatine Kinase 222, C-Reactive Protein, Quantitative 11.8H, Pro-B-Type Natriuretic Peptide 52, Total Protein 7.6, Albumin 3.2L, Globulin 4.4, Albumin/Globulin Ratio 0.7L, Triglycerides Level 71, Cholesterol Level 177, LDL Cholesterol 70, HDL Cholesterol 81H, Cholesterol/HDL Ratio 2.2L Height (Feet): 6 Height (Inches): 1.00 Weight (Pounds): 173 Cardiovascular: normal rate Respiratory/Chest: lungs clear Bradley Salazar MD Oct 05, 2018 19:43
[2018-10-05 20:00] VITALS: BP 141/76
[2018-10-05] MEDS: Tamsulosin 0.4mg cap ORAL SCH (20:29)
[2018-10-05] MEDS: Metoprolol Tartrate 50mg tab ORAL SCH (20:30)
[2018-10-06] VITALS: BP 151/79
[2018-10-06] MEDS: Morphine Sulfate 2mg/ml Inj(IV/IM USE ONLY) IVP PRN ×6 (03:02→21:20)
[2018-10-06 04:00] VITALS: BP 127/74
[2018-10-06] MEDS: chlordiazePOXIDE 25mg Cap ORAL SCH ×3 (05:30→21:19)
--- NOTE | 2018-10-06 07:26 | NUR ---
HAND-OFF: Report given to BUNNY Elizondo. Pt in stable condition.
--- NOTE | 2018-10-06 07:35 | NUR ---
NURSE NOTES: Rounds made pt awake . Refused breakfast at this time. Immobilizer not on at this time, pt refused placement . R/B explained " It is not comfortable" Denies pain at this time. Call light well in reach. Current plan of care will be followed
[2018-10-06] MEDS: Docusate 100mg cap ORAL SCH ×3 (07:55→17:19)
[2018-10-06] MEDS: Lisinopril 10mg tab ORAL SCH ×2 (07:56→17:22)
[2018-10-06] MEDS: Thiamine 100mg tab ORAL SCH (07:57)
[2018-10-06] MEDS: Metoprolol Tartrate 50mg tab ORAL SCH ×2 (07:57→21:19)
[2018-10-06 08:00] VITALS: BP 134/83
[2018-10-06] MEDS: Heparin 5000 units/ml inj SUBQ SCH ×2 (08:01→21:21)
--- NOTE | 2018-10-06 08:12 | NUR ---
NURSE NOTES: Pt continues to have sensation to left leg able to wiggle toes. Leg slightly abducted. Elevated on pillows
[2018-10-06] MEDS ORDERED: 1/2 NS 1000ml IV ONE (08:49)
--- NOTE | 2018-10-06 09:00 | General Progress Note ---
Assessment/Plan Problem List: (1) COPD (chronic obstructive pulmonary disease) ICD Codes: J44.9 - Chronic obstructive pulmonary disease, unspecified SNOMED: 33068957 (2) Gout ICD Codes: M10.9 - Gout, unspecified SNOMED: 17596487 (3) DJD (degenerative joint disease) ICD Codes: M19.90 - Unspecified osteoarthritis, unspecified site SNOMED: 353799679 (4) Femur fracture, left ICD Codes: S72.92XA - Unspecified fracture of left femur, initial encounter for closed fracture SNOMED: 41900860 Qualifiers: Qualified Codes: S72.92XA - Unspecified fracture of left femur, initial encounter for closed fracture (5) Pain ICD Codes: R52 - Pain, unspecified SNOMED: 79511050 (6) Accelerated hypertension ICD Codes: I10 - Essential (primary) hypertension SNOMED: 80456249 Status: stable, progressing Assessment/Plan: pt diet pain control cbc bmp am Subjective Constitutional: Reports: weakness Allergies: Coded Allergies: No Known Allergies (Unverified , 01/05/17) All Systems: reviewed and negative except above Subjective sleepy calm Objective Last 24 Hour Vital Signs Date Time Temp Pulse Resp B/P (MAP) Pulse Ox O2 Delivery O2 Flow Rate FiO2 10/06/18 07:57 103 146/76 10/06/18 07:56 146/76 10/06/18 07:56 103 146/76 10/06/18 04:00 98.0 94 20 127/74 (91) 96 10/06/18 00:00 99.6 94 20 151/79 (103) 95 10/05/18 21:00 Room Air 10/05/18 20:30 112 141/76 10/05/18 20:00 99.1 112 20 141/76 (97) 94 10/05/18 18:01 139/81 10/05/18 16:00 97.6 103 20 139/81 (100) 98 10/05/18 12:00 98.4 97 20 139/84 (102) 97 10/05/18 10:40 98.5 10/05/18 09:58 114 163/86 10/05/18 09:58 114 163/86 10/05/18 09:00 Room Air Intake and Output 10/05/18 10/06/18 19:00 07:00 Intake Total 1525 ml 850 ml Output Total 750 ml Balance 1525 ml 100 ml Intake Oral 660 ml 300 ml IV Total 865 ml 550 ml Output Urine Total 750 ml # Voids 3 Height (Feet): 6 Height (Inches): 1.00 Weight (Pounds): 173 General Appearance: lethargic EENT: normal ENT inspection Neck: normal alignment Cardiovascular: normal peripheral pulses, normal rate, regular rhythm Respiratory/Chest: chest wall non-tender, lungs clear, normal breath sounds Abdomen: normal bowel sounds, non tender, soft Extremities: normal inspection Edema: no edema noted Arm (L), no edema noted Arm (R), no edema noted Leg (L), no edema noted Leg (R), no edema noted Pedal (L), no edema noted Pedal (R), no edema noted Generalized Neurologic: motor weakness Skin: normal pigmentation, warm/dry Manuel Schulz DO Oct 06, 2018 09:00
--- NOTE | 2018-10-06 09:39 | NUR ---
NURSE NOTES: Pt pending possible transfer to [facility]. Has active fracture to left distal area. Occupational Therapy Specialist has not seen , pt get up with a walker. Has been on bedrest since start of shift.
[2018-10-06 11:40] VITALS: BP 122/64
--- NOTE | 2018-10-06 11:42 | NUR ---
NURSE NOTES: Pt watching television at this time. Provided with wash clothes for ADLs . No concerns at this time. Awaiting for clearance upon this writing from [facility]
--- NOTE | 2018-10-06 13:12 | Nephrology Progress Note ---
Assessment/Plan Problem List: (1) Accelerated hypertension (2) Alcohol intoxication (3) Generalized weakness (4) Anemia Assessment HTN OOC ETOH intoxication on admit , h/o abuse Left badly comminuted and displaced V-shaped supracondylar fracture with intra-articular involvement in a patient with prior history of tibial fracture. Plan Thiamin Folate Librium Hydrate Lopressor and Norvasc and lisinopril PRN Clonidine Monitor labs IV venofer Subjective ROS Limited/Unobtainable: No Objective Objective Last 24 Hour Vital Signs Date Time Temp Pulse Resp B/P (MAP) Pulse Ox O2 Delivery O2 Flow Rate FiO2 10/06/18 11:40 90 20 122/64 (83) 92 10/06/18 09:00 Room Air 10/06/18 08:00 98.8 16 134/83 (100) 99 10/06/18 07:57 103 146/76 10/06/18 07:56 146/76 10/06/18 07:56 103 146/76 10/06/18 04:00 98.0 94 20 127/74 (91) 96 10/06/18 00:00 99.6 94 20 151/79 (103) 95 10/05/18 21:00 Room Air 10/05/18 20:30 112 141/76 10/05/18 20:00 99.1 112 20 141/76 (97) 94 10/05/18 18:01 139/81 10/05/18 16:00 97.6 103 20 139/81 (100) 98 Intake and Output 10/05/18 10/06/18 19:00 07:00 Intake Total 1525 ml 850 ml Output Total 750 ml Balance 1525 ml 100 ml Intake Oral 660 ml 300 ml IV Total 865 ml 550 ml Output Urine Total 750 ml # Voids 3 Height (Feet): 6 Height (Inches): 1.00 Weight (Pounds): 173 General Appearance: no apparent distress Cardiovascular: normal rate Respiratory/Chest: lungs clear Abdomen: soft Objective no change Mickey Baldwin MD Oct 06, 2018 13:12
--- NOTE | 2018-10-06 13:57 | NUR ---
CASE MANAGEMENT: REVIEW SI: LEFT FEMUR FRACTURE . ALCOHOL INTOXICATION T 98.8 HR 103 RR 16 BP 146/76 SAT 99% ROOM AIR IS: LOPRESSOR PO Q12HR D5 NS IVF LIBRIUM PO Q8HR THIAMINE PO QD FOLIC ACID PO QD PT EVAL MED/SURG STATUS DCP: PATIENT IS FROM HOME
--- NOTE | 2018-10-06 14:55 | NUR ---
NURSE NOTES: Pt refused lunch states he does not have an appetite. Has [employer] at bedside. Hand Surgeon offered to warm food up with refusal . Pt noted raising self up, to reposition. Upon this writing [facility] transfer remains pending
[2018-10-06 15:40] VITALS: BP 126/60
--- NOTE | 2018-10-06 18:44 | NUR ---
NURSE NOTES: Pt did not have a bowel movement but is passing gas. Continues to express pain at a 8 pain medication provided. Current plan of care will be followed. Upon this writing Pt remains here without an update from [facility]
--- NOTE | 2018-10-06 19:30 | NUR ---
NURSE NOTES: Pt lying in bed w/bed in lowest position and call light within reach. Pt A&Ox4, VSS, and in no apparent distress. IV site intact/asymptomatic w/IVF @ 50 ml/hr; left knee swelling noted; and skin intact. Pt has no complaints or concerns at this time. Will continue to monitor.
--- NOTE | 2018-10-06 19:50 | NUR ---
HAND-OFF: Report given to Sara.
[2018-10-06 20:00] VITALS: BP 143/76
[2018-10-06] MEDS: Tamsulosin 0.4mg cap ORAL SCH (21:18)
--- NOTE | 2018-10-06 22:52 | Neurology Progress Note ---
Interim History Interim History ROS Limited/Unobtainable: No Events: THIS VISIT WAS PERFORMED ON OCTOBER 05, 2018 Objective Physical Exam Last Vital Signs Date Time Temp Pulse Resp B/P (MAP) Pulse Ox O2 Delivery O2 Flow Rate FiO2 10/06/18 21:19 111 143/76 10/06/18 21:00 Room Air 10/06/18 20:00 98.7 18 95 Impression/Recommendations Problems: (1) Alcohol intoxication Assessment & Plan: Consider CIWA protocol with Banana Bag and W/D scale use +/ - ATIVAN for symptoms. Psych consultation IF W/D symptoms Q4 Hour Neuro Obs Hydration/ IVH Maintain normoglycemia HgBA1c check (2) Generalized weakness Assessment & Plan: No Focal Weakness on exam except some limitation secondary to pain. Manage Pain Replace/ Correct Electrolyte imbalances PT/OT Eval Consider B Vitamin/Thiamin supplementation Banana bag IV (3) Knee pain, left (4) Upper back pain on left side (5) Femur fracture, left (6) Pain (7) Acute metabolic encephalopathy Status: stable, progressing Kayleen Villarreal N.P. Oct 06, 2018 22:52
[2018-10-07] VITALS (8 sets, daily range): BP systolic 110–145; BP diastolic 56–78
[2018-10-07] MEDS: Morphine Sulfate 2mg/ml Inj(IV/IM USE ONLY) IVP PRN ×3 (01:33→09:27)
[2018-10-07] MEDS: chlordiazePOXIDE 25mg Cap ORAL SCH ×3 (06:09→21:01)
--- NOTE | 2018-10-07 07:47 | NUR ---
HAND-OFF: Report given to BUNNY Moeller.
--- NOTE | 2018-10-07 08:03 | NUR ---
NURSE NOTES: Received report from Sara HOLLIS. Patient is awake alert and oriented x4, no acute distress noted. Reporting pain with movement only. Patient has minimal movement is left leg due to pain. Noted left knee more swollen than right. IVF running per order. Patient updated on plan of care, patient refuses knee immobilizer on left leg. Side rails upx3, bed low and locked, call light in reach. Will continue to monitor.
[2018-10-07 08:15] LABS: EOSINOPHILS % (AUTO) 1.2 % (0.0-3.0); HEMATOCRIT 31.1 % (42.0-52.0); HEMOGLOBIN 10.4 G/DL (14.2-18.0); LYMPHOCYTES % (AUTO) 22.4 % (20.0-45.0); MEAN CORPUSCULAR VOLUME 104 FL (80-99); MONOCYTES % (AUTO) 11.2 % (1.0-10.0); NEUTROPHILS % (AUTO) 64.2 % (45.0-75.0); PLATELET COUNT 204 K/UL (150-450); WHITE BLOOD COUNT 7.5 K/UL (4.8-10.8)
[2018-10-07 08:23] LABS: ANION GAP 9 mmol/L (5-15); BLOOD UREA NITROGEN 9 mg/dL (7-18); CALCIUM 9.6 MG/DL (8.5-10.1); CARBON DIOXIDE 25 MMOL/L (21-32); CHLORIDE 99 MMOL/L (98-107); CREATININE 0.9 MG/DL (0.55-1.30); POTASSIUM 3.6 MMOL/L (3.5-5.1); SODIUM 133 MMOL/L (136-145)
--- NOTE | 2018-10-07 08:24 | NUR ---
NURSE NOTES: Informed Dr. Vaughan of swelling and warmth in left leg. MD ordered for venous duplex. Order entered. Will continue to monitor.
[2018-10-07 08:30] LABS: ALANINE AMINOTRANSFERASE 18 U/L (12-78); ALBUMIN 2.9 G/DL (3.4-5.0); ALKALINE PHOSPHATASE 70 U/L (46-116); ASPARTATE AMINO TRANSFERASE 18 U/L (15-37); BILIRUBIN,DIRECT 0.2 MG/DL (0.0-0.3); BILIRUBIN,TOTAL 0.6 MG/DL (0.2-1.0)
[2018-10-07] MEDS: Thiamine 100mg tab ORAL SCH (08:36)
[2018-10-07] MEDS: Lisinopril 10mg tab ORAL SCH ×2 (08:36→18:08)
[2018-10-07] MEDS: Docusate 100mg cap ORAL SCH ×3 (08:36→18:08)
[2018-10-07] MEDS: Metoprolol Tartrate 50mg tab ORAL SCH ×2 (08:36→21:01)
[2018-10-07] MEDS: Heparin 5000 units/ml inj SUBQ SCH ×2 (08:38→21:02)
--- NOTE | 2018-10-07 09:27 | General Progress Note ---
Assessment/Plan Problem List: (1) COPD (chronic obstructive pulmonary disease) ICD Codes: J44.9 - Chronic obstructive pulmonary disease, unspecified SNOMED: 20680633 (2) Gout ICD Codes: M10.9 - Gout, unspecified SNOMED: 13901164 (3) DJD (degenerative joint disease) ICD Codes: M19.90 - Unspecified osteoarthritis, unspecified site SNOMED: 761812751 (4) Femur fracture, left ICD Codes: S72.92XA - Unspecified fracture of left femur, initial encounter for closed fracture SNOMED: 32897498 Qualifiers: Qualified Codes: S72.92XA - Unspecified fracture of left femur, initial encounter for closed fracture (5) Pain ICD Codes: R52 - Pain, unspecified SNOMED: 09844205 (6) Accelerated hypertension ICD Codes: I10 - Essential (primary) hypertension SNOMED: 81394358 Status: stable, progressing Assessment/Plan: pt diet pain control cbc bmp am Subjective Constitutional: Reports: weakness Allergies: Coded Allergies: No Known Allergies (Unverified , 01/05/17) All Systems: reviewed and negative except above Subjective sleepy calm Objective Last 24 Hour Vital Signs Date Time Temp Pulse Resp B/P (MAP) Pulse Ox O2 Delivery O2 Flow Rate FiO2 10/07/18 09:00 Room Air 10/07/18 08:36 145/78 10/07/18 08:36 108 145/78 10/07/18 08:36 108 145/78 10/07/18 08:00 97.2 108 20 145/78 (100) 98 10/07/18 04:00 98.7 99 18 126/69 (88) 95 10/07/18 00:00 98.1 95 18 129/64 (85) 97 10/06/18 21:19 111 143/76 10/06/18 21:00 Room Air 10/06/18 20:00 98.7 111 18 143/76 (98) 95 10/06/18 17:22 125/65 10/06/18 15:40 98.0 92 18 126/60 (82) 97 10/06/18 11:40 90 20 122/64 (83) 92 Intake and Output 10/06/18 10/07/18 19:00 07:00 Intake Total 1130 ml 975 ml Output Total 1850 ml Balance -720 ml 975 ml Intake Oral 480 ml 500 ml IV Total 650 ml 475 ml Output Urine Total 1850 ml # Voids 4 3 Laboratory Tests 10/07/18 07:46: White Blood Count 7.5, Red Blood Count 3.00L, Hemoglobin 10.4L, Hematocrit 31.1L , Mean Corpuscular Volume 104H, Mean Corpuscular Hemoglobin 34.7H, Mean Corpuscular Hemoglobin Concent 33.4, Red Cell Distribution Width 13.0, Platelet Count 204, Mean Platelet Volume 7.7, Neutrophils (%) (Auto) 64.2, Lymphocytes (% ) (Auto) 22.4, Monocytes (%) (Auto) 11.2H, Eosinophils (%) (Auto) 1.2, Basophils (%) (Auto) 1.0, Sodium Level 133L, Potassium Level 3.6, Chloride Level 99, Carbon Dioxide Level 25, Anion Gap 9, Blood Urea Nitrogen 9, Creatinine 0.9, Estimat Glomerular Filtration Rate > 60, Glucose Level 124H, Uric Acid 4.2, Calcium Level 9.6, Phosphorus Level 3.0, Magnesium Level 1.6L, Total Bilirubin 0.6, Direct Bilirubin 0.2, Aspartate Amino Transf (AST/SGOT) 18 , Alanine Aminotransferase (ALT/SGPT) 18, Alkaline Phosphatase 70, Total Protein 7.6, Albumin 2.9L Height (Feet): 6 Height (Inches): 1.00 Weight (Pounds): 173 General Appearance: lethargic EENT: normal ENT inspection Neck: normal alignment Cardiovascular: normal peripheral pulses, normal rate, regular rhythm Respiratory/Chest: chest wall non-tender, lungs clear, normal breath sounds Abdomen: normal bowel sounds, non tender, soft Extremities: normal inspection Edema: no edema noted Arm (L), no edema noted Arm (R), no edema noted Leg (L), no edema noted Leg (R), no edema noted Pedal (L), no edema noted Pedal (R), no edema noted Generalized Neurologic: motor weakness Skin: normal pigmentation, warm/dry Manuel Schulz DO Oct 07, 2018 09:26
--- NOTE | 2018-10-07 10:38 | NUR ---
PT Note Acknowledged order for physical therapy eval/tx from Dr Schulz. Chart reviewed chart. Per orthopedic notes, "X-RAY: X-rays of the knee are reviewed. There is a badly comminuted V-shaped supracondylar fracture involving both medial and lateral femoral condyles and extended intra-articularly with displacement. There is also evidence of prior tibial surgery and hardware with question and concern of broken screws. Impression: Left badly comminuted and displaced V-shaped supracondylar fracture with intra-articular involvement in a patient with prior history of tibial fracture. DISCUSSION: At this time, I discussed with the patient my findings. He understands he has quite a significant fracture and injury, and given the nature of this fracture, this will require a higher level of care and transfer to a tertiary trauma facility where also trauma specialist can address this." Gaudencio has not had surgery and an order for a venous scan has been ordered to r/o DVT. Discussed with CN and was advised to hold off on the PT eval/tx till further notice.
[2018-10-07] MEDS: dilTIAZem HCl 30mg tab ORAL SCH ×2 (14:01→21:05)
[2018-10-07] MEDS ORDERED: Tubing IV Secondary IV ONE (15:46)
--- NOTE | 2018-10-07 17:06 | General Progress Note ---
Assessment/Plan Status: stable, progressing Assessment/Plan: Assessment and Recs: # Anemia of chronic disease due to underlying chronic medical issues, multifactorial and myelosuppression --> Anemia workup has been ordered, rule out gi bleed --> No evidence of hemolysis is noted, peripheral smear has been reviewed --> Epogen or iron at this time is not particularly indicated --> Medications have been reviewed --> evaluate with Gi team prn --> transfuse if hgb is < 7 (will trend CBC daily) --> low threshold for gi evaluation in case has occult + # Macrocytosis is very likely related to underlying alcohol use by the pateint, which caused his fall --> b12, folate, tsh are wnl, no changes needed --> us of the abd but can be done as an outpatient --> given mcv 102, is okay for surgery, has heme clearance --> on thiamine, folic acid, iron iv # Femur left knee fracture --> orthopedic surgeyr has been consulted --> no bleeding, closed fracture --> currently splinted # Alcohol intoxication --> recommend cessation --> monitor for withdrawals The timing of this note does not necessarily reflect the time of the patient was seen. Greatly appreciate consultation! Subjective Constitutional: Denies: no symptoms, chills, diaphoresis, fever, malaise, weakness, other HEENT: Denies: no symptoms, eye pain, blurred vision, tearing, double vision, ear pain, ear discharge, nose pain, nose congestion, throat pain, throat swelling, mouth pain, mouth swelling, other Respiratory: Denies: no symptoms, cough, orthopnea, shortness of breath, SOB with excertion, SOB at rest, sputum, stridor, wheezing, other Gastrointestinal/Abdominal: Denies: no symptoms, abdomen distended, abdominal pain, black stools, tarry stools, blood in stool, constipated, diarrhea, difficulty swallowing, nausea, poor appetite, poor fluid intake, rectal bleeding , vomiting, other Genitourinary: Denies: no symptoms, burning, discharge, frequency, flank pain, hematuria, incontinence, pain, urgency, other Neurologic/Psychiatric: Denies: no symptoms, anxiety, depressed, emotional problems, headache, numbness, paresthesia, pre-existing deficit, seizure, tingling, tremors, weakness, other Endocrine: Denies: no symptoms, excessive sweating, flushing, intolerance to cold, intolerance to heat, increased hunger, increased thirst, increased urine, unexplained weight gain, unexplained weight loss, other Hematologic/Lymphatic: Denies: no symptoms, anemia, easy bleeding, easy bruising, other Allergies: Coded Allergies: No Known Allergies (Unverified , 01/05/17) Subjective 10/05: pending transfer to another hospital for potential of surgery, getting iv iron 10/07: no events to report, left arm swelling however noted, will get duplex venous of that arm Objective Last 24 Hour Vital Signs Date Time Temp Pulse Resp B/P (MAP) Pulse Ox O2 Delivery O2 Flow Rate FiO2 10/07/18 16:00 98.4 102 20 110/63 (79) 97 10/07/18 14:01 98 124/69 10/07/18 13:57 98 124/69 (87) 10/07/18 12:00 97.7 95 19 112/56 (74) 97 10/07/18 09:57 97.2 10/07/18 09:00 Room Air 10/07/18 08:36 145/78 10/07/18 08:36 108 145/78 10/07/18 08:36 108 145/78 10/07/18 08:00 97.2 108 20 145/78 (100) 98 10/07/18 04:00 98.7 99 18 126/69 (88) 95 10/07/18 00:00 98.1 95 18 129/64 (85) 97 10/06/18 21:19 111 143/76 10/06/18 21:00 Room Air 10/06/18 20:00 98.7 111 18 143/76 (98) 95 10/06/18 17:22 125/65 Intake and Output 10/06/18 10/07/18 19:00 07:00 Intake Total 1130 ml 1025 ml Output Total 1850 ml Balance -720 ml 1025 ml Intake Oral 480 ml 500 ml IV Total 650 ml 525 ml Output Urine Total 1850 ml # Voids 4 3 Laboratory Tests 10/07/18 07:46: White Blood Count 7.5, Red Blood Count 3.00L, Hemoglobin 10.4L, Hematocrit 31.1L , Mean Corpuscular Volume 104H, Mean Corpuscular Hemoglobin 34.7H, Mean Corpuscular Hemoglobin Concent 33.4, Red Cell Distribution Width 13.0, Platelet Count 204, Mean Platelet Volume 7.7, Neutrophils (%) (Auto) 64.2, Lymphocytes (% ) (Auto) 22.4, Monocytes (%) (Auto) 11.2H, Eosinophils (%) (Auto) 1.2, Basophils (%) (Auto) 1.0, Sodium Level 133L, Potassium Level 3.6, Chloride Level 99, Carbon Dioxide Level 25, Anion Gap 9, Blood Urea Nitrogen 9, Creatinine 0.9, Estimat Glomerular Filtration Rate > 60, Glucose Level 124H, Uric Acid 4.2, Calcium Level 9.6, Phosphorus Level 3.0, Magnesium Level 1.6L, Total Bilirubin 0.6, Direct Bilirubin 0.2, Aspartate Amino Transf (AST/SGOT) 18 , Alanine Aminotransferase (ALT/SGPT) 18, Alkaline Phosphatase 70, Total Protein 7.6, Albumin 2.9L Height (Feet): 6 Height (Inches): 1.00 Weight (Pounds): 173 Objective PE vitals normal Sp02 EP Interpretation: reviewed, normal General Appearance: well appearing Head: normocephalic, atraumatic Eyes: bilateral eye PERRL, bilateral eye EOMI ENT: hearing grossly normal, normal pharynx Neck: full range of motion, supple, no meningismus Respiratory: chest non-tender, lungs clear Cardiovascular #1: regular rate, rhythm, no murmur Gastrointestinal: normal bowel sounds, non tender Musculoskeletal: back normal, other - Left knee: Diffuse effusion Psychiatric: mood/affect normal Skin: warm/dry Nile Kerr MD Oct 07, 2018 17:06
--- NOTE | 2018-10-07 17:06 | Nephrology Progress Note ---
Assessment/Plan Problem List: (1) Accelerated hypertension (2) Alcohol intoxication (3) Generalized weakness (4) Anemia Assessment HTN OOC ETOH intoxication on admit , h/o abuse Left badly comminuted and displaced V-shaped supracondylar fracture with intra-articular involvement in a patient with prior history of tibial fracture. Plan Thiamin Folate Librium Lopressor and vardizem and lisinopril PRN Clonidine Monitor labs IV venofer 2D echo Subjective ROS Limited/Unobtainable: No Objective Objective Last 24 Hour Vital Signs Date Time Temp Pulse Resp B/P (MAP) Pulse Ox O2 Delivery O2 Flow Rate FiO2 10/07/18 16:00 98.4 102 20 110/63 (79) 97 10/07/18 14:01 98 124/69 10/07/18 13:57 98 124/69 (87) 10/07/18 12:00 97.7 95 19 112/56 (74) 97 10/07/18 09:57 97.2 10/07/18 09:00 Room Air 10/07/18 08:36 145/78 10/07/18 08:36 108 145/78 10/07/18 08:36 108 145/78 10/07/18 08:00 97.2 108 20 145/78 (100) 98 10/07/18 04:00 98.7 99 18 126/69 (88) 95 10/07/18 00:00 98.1 95 18 129/64 (85) 97 10/06/18 21:19 111 143/76 10/06/18 21:00 Room Air 10/06/18 20:00 98.7 111 18 143/76 (98) 95 10/06/18 17:22 125/65 Intake and Output 10/06/18 10/07/18 19:00 07:00 Intake Total 1130 ml 1025 ml Output Total 1850 ml Balance -720 ml 1025 ml Intake Oral 480 ml 500 ml IV Total 650 ml 525 ml Output Urine Total 1850 ml # Voids 4 3 Laboratory Tests 10/07/18 07:46: White Blood Count 7.5, Red Blood Count 3.00L, Hemoglobin 10.4L, Hematocrit 31.1L , Mean Corpuscular Volume 104H, Mean Corpuscular Hemoglobin 34.7H, Mean Corpuscular Hemoglobin Concent 33.4, Red Cell Distribution Width 13.0, Platelet Count 204, Mean Platelet Volume 7.7, Neutrophils (%) (Auto) 64.2, Lymphocytes (% ) (Auto) 22.4, Monocytes (%) (Auto) 11.2H, Eosinophils (%) (Auto) 1.2, Basophils (%) (Auto) 1.0, Sodium Level 133L, Potassium Level 3.6, Chloride Level 99, Carbon Dioxide Level 25, Anion Gap 9, Blood Urea Nitrogen 9, Creatinine 0.9, Estimat Glomerular Filtration Rate > 60, Glucose Level 124H, Uric Acid 4.2, Calcium Level 9.6, Phosphorus Level 3.0, Magnesium Level 1.6L, Total Bilirubin 0.6, Direct Bilirubin 0.2, Aspartate Amino Transf (AST/SGOT) 18 , Alanine Aminotransferase (ALT/SGPT) 18, Alkaline Phosphatase 70, Total Protein 7.6, Albumin 2.9L Height (Feet): 6 Height (Inches): 1.00 Weight (Pounds): 173 General Appearance: no apparent distress Objective no change Mickey Baldwin MD Oct 07, 2018 17:06
--- NOTE | 2018-10-07 18:20 | NUR ---
NURSE NOTES: Empty can of malt liquor found at patient's bedside. Patient stated that the can is his 's and he did not drink it. Patient does not smell of alcohol and is not showing any signs of intoxication. Educated patient that his may not bring alcohol into the hospital. Charge nurse Becka aware. Will continue to monitor.
--- NOTE | 2018-10-07 18:26 | NUR ---
NURSE NOTES: Attempted to call ultrasound regarding venous duplex that was ordered this morning. No one is picking up in ultrasound.
--- NOTE | 2018-10-07 19:14 | NUR ---
HAND-OFF: Report given to Sara HOLLIS. Patient is in stable condition.
--- NOTE | 2018-10-07 19:45 | NUR ---
NURSE NOTES: Pt lying in bed w/bed in lowest position and call light within reach. Pt A&Ox4, VSS, and in no apparent distress. IV site intact/asymptomatic & H/L'd; pt still refusing to wear knee immobilizer for left femur fracture; and skin intact w/left knee swelling noted. Will continue to monitor.
[2018-10-07] MEDS: Tamsulosin 0.4mg cap ORAL SCH (21:01)
[2018-10-07] MEDS: Morphine Sulfate 4mg/ml Inj (IV USE ONLY) IVP PRN (21:10)
--- NOTE | 2018-10-07 23:33 | Neurology Progress Note ---
Interim History Interim History ROS Limited/Unobtainable: No Objective Physical Exam Last Vital Signs Date Time Temp Pulse Resp B/P (MAP) Pulse Ox O2 Delivery O2 Flow Rate FiO2 10/07/18 22:07 98.9 10/07/18 21:05 107 124/68 10/07/18 21:00 Room Air 10/07/18 20:00 20 96 Laboratory Tests Test 10/07/18 07:46 White Blood Count 7.5 K/UL (4.8-10.8) Red Blood Count 3.00 M/UL (4.70-6.10) L Hemoglobin 10.4 G/DL (14.2-18.0) L Hematocrit 31.1 % (42.0-52.0) L Mean Corpuscular Volume 104 FL (80-99) H Mean Corpuscular Hemoglobin 34.7 PG (27.0-31.0) H Mean Corpuscular Hemoglobin Concent 33.4 G/DL (32.0-36.0) Red Cell Distribution Width 13.0 % (11.6-14.8) Platelet Count 204 K/UL (150-450) Mean Platelet Volume 7.7 FL (6.5-10.1) Neutrophils (%) (Auto) 64.2 % (45.0-75.0) Lymphocytes (%) (Auto) 22.4 % (20.0-45.0) Monocytes (%) (Auto) 11.2 % (1.0-10.0) H Eosinophils (%) (Auto) 1.2 % (0.0-3.0) Basophils (%) (Auto) 1.0 % (0.0-2.0) Sodium Level 133 MMOL/L (136-145) L Potassium Level 3.6 MMOL/L (3.5-5.1) Chloride Level 99 MMOL/L (98-107) Carbon Dioxide Level 25 MMOL/L (21-32) Anion Gap 9 mmol/L (5-15) Blood Urea Nitrogen 9 mg/dL (7-18) Creatinine 0.9 MG/DL (0.55-1.30) Estimat Glomerular Filtration Rate > 60 mL/min (>60) Glucose Level 124 MG/DL (74-106) H Uric Acid 4.2 MG/DL (2.6-7.2) Calcium Level 9.6 MG/DL (8.5-10.1) Phosphorus Level 3.0 MG/DL (2.5-4.9) Magnesium Level 1.6 MG/DL (1.8-2.4) L Total Bilirubin 0.6 MG/DL (0.2-1.0) Direct Bilirubin 0.2 MG/DL (0.0-0.3) Aspartate Amino Transf (AST/SGOT) 18 U/L (15-37) Alanine Aminotransferase (ALT/SGPT) 18 U/L (12-78) Alkaline Phosphatase 70 U/L (46-116) Total Protein 7.6 G/DL (6.4-8.2) Albumin 2.9 G/DL (3.4-5.0) L Impression/Recommendations Problems: (1) Alcohol intoxication Assessment & Plan: Consider CIWA protocol with Banana Bag and W/D scale use +/ - ATIVAN for symptoms. Psych consultation IF W/D symptoms Q4 Hour Neuro Obs Hydration/ IVH Maintain normoglycemia HgBA1c check (2) Generalized weakness Assessment & Plan: No Focal Weakness on exam except some limitation secondary to pain. Manage Pain Replace/ Correct Electrolyte imbalances PT/OT Eval Consider B Vitamin/Thiamin supplementation Banana bag IV (3) Knee pain, left (4) Upper back pain on left side (5) Femur fracture, left (6) Pain (7) Acute metabolic encephalopathy Status: stable, progressing Kayleen Villarreal N.P. Oct 07, 2018 23:33
[2018-10-08] VITALS: BP 91/48
[2018-10-08 04:00] VITALS: BP 120/63
[2018-10-08] MEDS: dilTIAZem HCl 30mg tab ORAL SCH (05:58)
[2018-10-08] MEDS: chlordiazePOXIDE 25mg Cap ORAL SCH (05:58)
[2018-10-08 06:56] LABS: BASOPHILS % (AUTO) 0.9 % (0.0-2.0); EOSINOPHILS % (AUTO) 0.9 % (0.0-3.0); HEMATOCRIT 27.2 % (42.0-52.0); HEMOGLOBIN 9.2 G/DL (14.2-18.0); LYMPHOCYTES % (AUTO) 16.3 % (20.0-45.0); MEAN CORPUSCULAR VOLUME 103 FL (80-99); MONOCYTES % (AUTO) 13.1 % (1.0-10.0); NEUTROPHILS % (AUTO) 68.9 % (45.0-75.0); PLATELET COUNT 259 K/UL (150-450); RED BLOOD COUNT 2.65 M/UL (4.70-6.10); RED CELL DISTRIBUTION WIDTH 12.7 % (11.6-14.8); WHITE BLOOD COUNT 7.3 K/UL (4.8-10.8)
[2018-10-08 07:09] LABS: ANION GAP 9 mmol/L (5-15); BLOOD UREA NITROGEN 13 mg/dL (7-18); CALCIUM 8.9 MG/DL (8.5-10.1); CARBON DIOXIDE 25 MMOL/L (21-32); CHLORIDE 99 MMOL/L (98-107); POTASSIUM 3.9 MMOL/L (3.5-5.1); SODIUM 133 MMOL/L (136-145)
--- NOTE | 2018-10-08 07:18 | NUR ---
HAND-OFF: Report given to BUNNY Moeller.
--- NOTE | 2018-10-08 07:44 | NUR ---
NURSE NOTES: Received report from Sara HOLLIS. Patient is awake alert and oriented x4, no acute distress noted but patient is reporting pain, will medicate as ordered. Patient continues to refuse knee immobilizer. IV intact and asymptomatic. Swelling noted in left knee, will follow up with ultrasound for venous duplex. Side rails upx3, bed low and locked, call light in reach. Will continue to monitor.
[2018-10-08 08:00] VITALS: BP 104/54
[2018-10-08] MEDS: Morphine Sulfate 4mg/ml Inj (IV USE ONLY) IVP PRN (08:13)
--- NOTE | 2018-10-08 08:15 | NUR ---
Noted patient has low grade fever. Patient educated to cough, deep breathe, and continue moving in bed as tolerated. Removed blankets. Will continue to monitor and reassess.
[2018-10-08] MEDS: Thiamine 100mg tab ORAL SCH (08:48)
[2018-10-08] MEDS: Metoprolol Tartrate 50mg tab ORAL SCH (08:48)
[2018-10-08] MEDS: Docusate 100mg cap ORAL SCH ×2 (08:48→13:00)
[2018-10-08] MEDS: Heparin 5000 units/ml inj SUBQ SCH (08:50)
[2018-10-08] MEDS: Lisinopril 10mg tab ORAL SCH (08:57)
--- NOTE | 2018-10-08 08:58 | NUR ---
NURSE NOTES: Venous duplex of left leg negative for blood clot as reported by it field technician. Tech stated [facility]
[2018-10-08 09:08] LABS: PHOSPHORUS 3.6 MG/DL (2.5-4.9)
--- NOTE | 2018-10-08 10:08 | NUR ---
*-* INSURANCE *-* UPDATED CLINICALS AND REVIEWS HAVE BEEN FAXED TO: [employer] CARRION:JUAN PABLO AUTH# [id number] FAX CLINICALS TO [phone] T: [phone]
--- NOTE | 2018-10-08 10:34 | Nephrology Progress Note ---
Assessment/Plan Problem List: (1) Accelerated hypertension (2) Alcohol intoxication (3) Generalized weakness (4) Anemia Assessment HTN OOC ETOH intoxication on admit , h/o abuse Left badly comminuted and displaced V-shaped supracondylar fracture with intra-articular involvement in a patient with prior history of tibial fracture. Plan check urine and blood culture and chest x ray adjust BP meds Thiamin Folate Librium 2D echo 65 % Ej fx PRN Clonidine Monitor labs IV venofer 2D echo Subjective ROS Limited/Unobtainable: No Constitutional: Reports: malaise Objective Objective Last 24 Hour Vital Signs Date Time Temp Pulse Resp B/P (MAP) Pulse Ox O2 Delivery O2 Flow Rate FiO2 10/08/18 09:00 Room Air 10/08/18 08:57 104/54 10/08/18 08:48 107 104/54 10/08/18 08:43 100.3 10/08/18 08:00 100.3 107 18 104/54 (71) 95 10/08/18 05:58 103 120/63 10/08/18 04:00 99.3 103 18 120/63 (82) 98 10/08/18 00:00 99.6 91 18 91/48 (62) 93 10/07/18 22:07 98.9 10/07/18 21:05 107 124/68 10/07/18 21:01 107 124/68 10/07/18 21:00 Room Air 10/07/18 20:00 100.8 107 20 124/68 (86) 96 10/07/18 18:08 121/59 10/07/18 18:03 105 121/59 (79) 10/07/18 16:00 98.4 102 20 110/63 (79) 97 10/07/18 14:01 98 124/69 10/07/18 13:57 98 124/69 (87) 10/07/18 12:00 97.7 95 19 112/56 (74) 97 Intake and Output 10/07/18 10/08/18 19:00 07:00 Intake Total 1000 ml Output Total 400 ml 800 ml Balance 600 ml -800 ml Intake Oral 750 ml IV Total 250 ml Output Urine Total 400 ml 800 ml # Voids 2 Laboratory Tests 10/08/18 06:25: White Blood Count 7.3, Red Blood Count 2.65L, Hemoglobin 9.2L, Hematocrit 27.2L , Mean Corpuscular Volume 103H, Mean Corpuscular Hemoglobin 34.7H, Mean Corpuscular Hemoglobin Concent 33.8, Red Cell Distribution Width 12.7, Platelet Count 259, Mean Platelet Volume 6.9, Neutrophils (%) (Auto) 68.9, Lymphocytes (% ) (Auto) 16.3L, Monocytes (%) (Auto) 13.1H, Eosinophils (%) (Auto) 0.9, Basophils (%) (Auto) 0.9, Sodium Level 133L, Potassium Level 3.9, Chloride Level 99, Carbon Dioxide Level 25, Anion Gap 9, Blood Urea Nitrogen 13, Creatinine 1.0, Estimat Glomerular Filtration Rate > 60, Glucose Level 122H, Calcium Level 8.9, Phosphorus Level 3.6, Magnesium Level 2.0 Height (Feet): 6 Height (Inches): 1.00 Weight (Pounds): 173 General Appearance: no apparent distress Respiratory/Chest: decreased breath sounds Objective no change Mickey Baldwin MD Oct 08, 2018 10:34
--- NOTE | 2018-10-08 11:06 | NUR ---
DISCHARGE/TRANSFER PATIENT HAS BEEN ACCEPTED AT [facility] ROOM [address] CHARLTON T: [phone] FOR NURSE TO NURSE REPORT [facility] HAS BEEN ARRANGED [id number] [employer]VER....AMBULANCE AUTH [id number]
[2018-10-08] MEDS ORDERED: HYDROCHLOROTHIA25 MG ORAL (11:07)
[2018-10-08] MEDS ORDERED: AMLODIPINE BESYL5 MG ORAL (11:07)
[2018-10-08] MEDS ORDERED: LIDODERM700 M1 TOPIC (11:07)
[2018-10-08] MEDS ORDERED: ALBUTEROL SULF8.5 GM INH (11:07)
[2018-10-08] MEDS ORDERED: MIRTAZAPINE7.5 MG ORAL (11:07)
--- NOTE | 2018-10-08 11:15 | NUR ---
RADIOLOGY DEPT., CHEST X-RAY DONE.-P.DYE
[2018-10-08 12:00] VITALS: BP 121/65
--- NOTE | 2018-10-08 12:41 | NUR ---
NURSE NOTES: Called and gave report BUNNY Arellano at [facility].
--- NOTE | 2018-10-08 13:46 | NUR ---
NURSE NOTES: Patient discharged. No acute distress on discharge. Patient sent to [facility] for higher level of care. Patient given all belongings, Rx given to patient's , medication reconciliation reviewed with Dr. Salazar. Report given to [facility] EMT, [facility] by [facility] personnel, accompanied by patient's . IV removed intact. Patient left in stable condition.
--- NOTE | 2018-10-08 14:17 | General Progress Note ---
Assessment/Plan Status: stable, progressing Assessment/Plan: Assessment and Recs: # Anemia of chronic disease due to underlying chronic medical issues, multifactorial and myelosuppression --> Anemia workup has been ordered, rule out gi bleed --> No evidence of hemolysis is noted, peripheral smear has been reviewed --> Epogen or iron at this time is not particularly indicated --> Medications have been reviewed --> evaluate with Gi team prn --> transfuse if hgb is < 7 (will trend CBC daily) --> low threshold for gi evaluation in case has occult + # Macrocytosis is very likely related to underlying alcohol use by the pateint, which caused his fall --> b12, folate, tsh are wnl, no changes needed --> us of the abd but can be done as an outpatient --> given mcv 102, is okay for surgery, has heme clearance --> on thiamine, folic acid, iron iv # Femur left knee fracture --> orthopedic surgery at transfer to [facility] --> no bleeding, closed fracture --> currently splinted # Alcohol intoxication --> recommend cessation --> monitor for withdrawals The timing of this note does not necessarily reflect the time of the patient was seen. Greatly appreciate consultation! Subjective Constitutional: Denies: no symptoms, chills, diaphoresis, fever, malaise, weakness, other HEENT: Denies: no symptoms, eye pain, blurred vision, tearing, double vision, ear pain, ear discharge, nose pain, nose congestion, throat pain, throat swelling, mouth pain, mouth swelling, other Cardiovascular: Denies: no symptoms, chest pain, edema, irregular heart rate, lightheadedness, palpitations, syncope, other Respiratory: Denies: no symptoms, cough, orthopnea, shortness of breath, SOB with excertion, SOB at rest, sputum, stridor, wheezing, other Gastrointestinal/Abdominal: Denies: no symptoms, abdomen distended, abdominal pain, black stools, tarry stools, blood in stool, constipated, diarrhea, difficulty swallowing, nausea, poor appetite, poor fluid intake, rectal bleeding , vomiting, other Neurologic/Psychiatric: Denies: no symptoms, anxiety, depressed, emotional problems, headache, numbness, paresthesia, pre-existing deficit, seizure, tingling, tremors, weakness, other Endocrine: Denies: no symptoms, excessive sweating, flushing, intolerance to cold, intolerance to heat, increased hunger, increased thirst, increased urine, unexplained weight gain, unexplained weight loss, other Allergies: Coded Allergies: No Known Allergies (Unverified , 01/05/17) Subjective 10/05: pending transfer to another hospital for potential of surgery, getting iv iron 10/07: no events to report, left arm swelling however noted, will get duplex venous of that arm 10/08: no events noted, pending potentially to higher level of care transfer Objective Last 24 Hour Vital Signs Date Time Temp Pulse Resp B/P (MAP) Pulse Ox O2 Delivery O2 Flow Rate FiO2 10/08/18 12:00 98.7 95 16 121/65 (83) 97 10/08/18 09:00 Room Air 10/08/18 08:57 104/54 10/08/18 08:48 107 104/54 10/08/18 08:43 100.3 10/08/18 08:00 100.3 107 18 104/54 (71) 95 10/08/18 05:58 103 120/63 10/08/18 04:00 99.3 103 18 120/63 (82) 98 10/08/18 00:00 99.6 91 18 91/48 (62) 93 10/07/18 22:07 98.9 10/07/18 21:05 107 124/68 10/07/18 21:01 107 124/68 10/07/18 21:00 Room Air 10/07/18 20:00 100.8 107 20 124/68 (86) 96 10/07/18 18:08 121/59 10/07/18 18:03 105 121/59 (79) 10/07/18 16:00 98.4 102 20 110/63 (79) 97 Intake and Output 10/07/18 10/08/18 19:00 07:00 Intake Total 1000 ml Output Total 400 ml 800 ml Balance 600 ml -800 ml Intake Oral 750 ml IV Total 250 ml Output Urine Total 400 ml 800 ml # Voids 2 Laboratory Tests 10/08/18 06:25: White Blood Count 7.3, Red Blood Count 2.65L, Hemoglobin 9.2L, Hematocrit 27.2L , Mean Corpuscular Volume 103H, Mean Corpuscular Hemoglobin 34.7H, Mean Corpuscular Hemoglobin Concent 33.8, Red Cell Distribution Width 12.7, Platelet Count 259, Mean Platelet Volume 6.9, Neutrophils (%) (Auto) 68.9, Lymphocytes (% ) (Auto) 16.3L, Monocytes (%) (Auto) 13.1H, Eosinophils (%) (Auto) 0.9, Basophils (%) (Auto) 0.9, Sodium Level 133L, Potassium Level 3.9, Chloride Level 99, Carbon Dioxide Level 25, Anion Gap 9, Blood Urea Nitrogen 13, Creatinine 1.0, Estimat Glomerular Filtration Rate > 60, Glucose Level 122H, Calcium Level 8.9, Phosphorus Level 3.6, Magnesium Level 2.0 Height (Feet): 6 Height (Inches): 1.00 Weight (Pounds): 173 Objective PE vitals normal Sp02 EP Interpretation: reviewed, normal General Appearance: well appearing Head: normocephalic, atraumatic Eyes: bilateral eye PERRL, bilateral eye EOMI ENT: hearing grossly normal, normal pharynx Neck: full range of motion, supple, no meningismus Respiratory: chest non-tender, lungs clear Cardiovascular #1: regular rate, rhythm, no murmur Gastrointestinal: normal bowel sounds, non tender Musculoskeletal: back normal, other - Left knee: Diffuse effusion Psychiatric: mood/affect normal Skin: warm/dry Nile Kerr MD Oct 08, 2018 14:17
--- NOTE | 2018-10-08 14:54 | Diagnostic Imaging Report ---
Indication: Cough Technique: One view of the chest Comparison: 12/24/2017 Findings: Lungs and pleural spaces are clear. Heart size is normal. No significant interim change Impression: No acute process
--- NOTE | 2018-10-09 12:08 | Discharge Summary ---
Discharge Summary Discharge Summary _ Discharge summary 10/03/2018 DATE OF ADMISSION: 10/03/2018 DATE OF DISCHARGE: 10/08/2018 DISCHARGED BY: Dr Salazar REASON FOR ADMISSION: 58 years old male with past medical history of hypertension, COPD, previous left knee surgery, presented with complaint of left knee pain. Patient reported trip and fall, with landing on his left knee. Upon physical examination left knee appeared edematous. Patient was unable to move it. Patient reported pain 8 out of 10 worse with movement. Vital signs revealed tachycardia, otherwise stable. X-ray of the left knee demonstrated acute comminuted distal femoral fracture. X-ray of the left femur demonstrated distal femur fracture. Laboratory work-up revealed no leukocytosis, stable hemoglobin and hematocrit. Stable renal parameters and electrolytes. Urine toxicology screen was negative. Serum alcohol level was 230. Left knee immobilizer was applied. Patient admitted for orthopedic evaluation and further management CONSULTANTS: neurologist Dr. Saeed heating element repairer Dr. Baldwin clerical associate/oncologist [facility]: Patient admitted to medical surgical floor and started on IV fluids with vitamins/banana bag. Pain management was addressed . Anxiolytic were on board as needed. Supportive care provided. DVT prophylaxis provided. Orthopedic surgeon seen and evaluated patient. Imaging revealed left badly comminuted and displaced V-shaped supracondylar fracture with intra-articular involvement in a patient with a prior history of tibial fracture. Patient had a significant fracture , which required higher level of care and transfer to tertiary trauma facility, so the trauma specialist could address it. Patient was placed on the waiting list. Pain management was addressed. Cream Dumper closely followed. Renal parameters and electrolytes were closely monitored. Electrolytes corrected as needed , specifically magnesium ; and nephrotoxins were avoided. Prior to transfer magnesium 2.0. Patient demonstrated accelerated hypertension , likely due to pain and alcohol intoxication. Blood pressure was managed with multiply antihypertensive, including calcium channel dean, BONIFACIO inhibitor and beta-dean as per heating element repairer recommendation. Blood pressure eventually stabilized. GI prophylaxis provided. Supplemental oxygen was on board as needed. Pulse oximetry was stable on room air. No signs of respiratory distress. Patient was counseled on abstinence from ETOH. CT of the head revealed no acute intracranial pathology. Echocardiogram revealed preserved ejection fraction of 65% with no evidence of wall motion abnormality. Mild left ventricular hypertrophy. Right ventricular systolic pressure of 15. Hemoglobin and hematocrit were closely monitored with goal to keep hemoglobin above 7. Prior to discharge hemoglobin 9.2, hematocrit 27.2. Anemia work-up was consistent with anemia of chronic disease. Noted low iron. Patient received IV Venofer x1. Lipid panel was stable. Folate and B12 were within normal limits. Pain was controlled. Supportive care provided. Bowel regimen instituted. Placement was found and secured at [facility] Patient was stable for transfer. FINAL DIAGNOSES: Left badly comminuted and displaced femur fracture Alcohol intoxication Acute metabolic encephalopathy Accelerated hypertension due to hypertensive urgency- resolved Anemia of chronic disease DISCHARGE MEDICATIONS: See Medication Reconciliation list. DISCHARGE INSTRUCTIONS: Patient was transferred to tertiary trauma facility/[facility] for further evaluation and management. I have been assigned to dictate discharge summary for this account. I was not involved in the patient's management. Izzy Greenberg NP Oct 09, 2018 12:08
== END 2018-10-08 13:35 | disposition short-term general hospital (02) | DRG 342 ==
LOC: EDBD 23:49 → EMR 23:58 → 3E 10-03 01:38 → EDBEDREQ 10-03 02:13
DX: S42.422A Displaced comminuted supracondylar fracture without intercondylar fracture of left humerus, initial encounter for closed fracture (principal); G93.41 Metabolic encephalopathy; F10.129 Alcohol abuse with intoxication, unspecified; Z91.81 History of falling; W01.0XXA Fall on same level from slipping, tripping and stumbling without subsequent striking against object, initial encounter; Y93.41 Activity, dancing; J44.9 Chronic obstructive pulmonary disease, unspecified; D75.89 Other specified diseases of blood and blood-forming organs; I10 Essential (primary) hypertension; M19.90 Unspecified osteoarthritis, unspecified site; F43.10 Post-traumatic stress disorder, unspecified; M54.9 Dorsalgia, unspecified; M10.9 Gout, unspecified; D63.8 Anemia in other chronic diseases classified elsewhere
CPT/HCPCS: 29505; 36415; 70450; 71045; 80048; 80053; 80061; 80076; 80307; 80329; 81001; 82550; 82607; 82728; 82746; 82977; 83036; 83540; 83550; 83735; 83880; 84100; 84443; 84550; 85025; 85610; 85730; 86140; 87040; 93306; 93971; 99285

== ENCOUNTER 2018-11-21 18:38 | Emergency (ER) | payer MEDICAID ==
[~2018-11-21] VITALS: Ht 185.4 cm; Wt 78.5 kg
[~2018-11-21 18:38] MED LIST changes: +AMLODIPINE BESYL5 MG ORAL; +HYDROCHLOROTHIA25 MG ORAL; +LIDODERM700 M1 TOPIC; +MIRTAZAPINE7.5 MG ORAL; +UNOBMED
[2018-11-21 19:00] VITALS: BP 142/79
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
[2018-11-21] MEDS ORDERED: oxyCODONE HCL/Acetaminophen 5/325mg ORAL ONE (19:30)
[2018-11-21 20:17] LABS: BASOPHILS % (AUTO) 0.9 % (0.0-2.0); EOSINOPHILS % (AUTO) 1.5 % (0.0-3.0); HEMATOCRIT 41.8 % (42.0-52.0); HEMOGLOBIN 13.8 G/DL (14.2-18.0); LYMPHOCYTES % (AUTO) 46.3 % (20.0-45.0); MEAN CORPUSCULAR VOLUME 94 FL (80-99); MONOCYTES % (AUTO) 4.6 % (1.0-10.0); NEUTROPHILS % (AUTO) 46.7 % (45.0-75.0); PLATELET COUNT 302 K/UL (150-450); RED BLOOD COUNT 4.45 M/UL (4.70-6.10); RED CELL DISTRIBUTION WIDTH 13.5 % (11.6-14.8); WHITE BLOOD COUNT 6.4 K/UL (4.8-10.8)
[2018-11-21 20:24] LABS: ANION GAP 13 mmol/L (5-15); BLOOD UREA NITROGEN 10 mg/dL (7-18); CALCIUM 9.8 MG/DL (8.5-10.1); CARBON DIOXIDE 26 MMOL/L (21-32); CHLORIDE 105 MMOL/L (98-107); CREATININE 0.9 MG/DL (0.55-1.30); POTASSIUM 3.7 MMOL/L (3.5-5.1); SODIUM 144 MMOL/L (136-145)
[2018-11-21 20:25] LABS: INR 1.1 (0.9-1.1)
[2018-11-21 20:35] LABS: ALANINE AMINOTRANSFERASE 26 U/L (12-78); ALBUMIN 4.1 G/DL (3.4-5.0); ALBUMIN/GLOBULIN RATIO 0.9 (1.0-2.7); ALKALINE PHOSPHATASE 179 U/L (46-116); ASPARTATE AMINO TRANSFERASE 20 U/L (15-37); BILIRUBIN,TOTAL 0.3 MG/DL (0.2-1.0); CREATINE KINASE 207 U/L (26-308)
[2018-11-21 21:00] VITALS: BP 142/78
[2018-11-21] MEDS ORDERED: LIDODERM700 M1 TOPIC (22:02)
[2018-11-21] MEDS ORDERED: NORCO 5-325 TA1 EACH ORAL (22:02)
[2018-11-21 22:17] VITALS: BP 145/68
--- NOTE | 2018-11-22 10:28 | Diagnostic Imaging Report ---
Indication: Shortness of breath Technique: One view of the chest Comparison: 10/08/2018 Findings: Lungs and pleural spaces are clear. Heart size is normal. No significant interim change Impression: No acute process
== END 2018-11-21 22:15 | disposition home or self-care (01) ==
LOC: EMR 19:26
DX: M25.562 Pain in left knee (principal); G89.29 Other chronic pain; R00.0 Tachycardia, unspecified; Z86.711 Personal history of pulmonary embolism; Z87.891 Personal history of nicotine dependence; J44.9 Chronic obstructive pulmonary disease, unspecified; R22.42 Localized swelling, mass and lump, left lower limb
CPT/HCPCS: 36415; 71045; 80053; 80307; 82550; 83880; 84484; 85025; 85610; 85730; 93005; 96360; 99284